=== PATIENT | male | born 1940 | race Caucasian/White ===

== ENCOUNTER → 2020-06-27 | Outpatient (CLI) | payer OTHER ==
[~2020-06-27] MED LIST: Cleocin HCl150 MG PO; METO25ER; Peridex480 ML SS; SIMV5; TERA5 PO
[2020-06-27 14:43] LABS: BASOPHILS ABSOLUTE AUTO 0.03 K/mm3 (0.00-0.23); BASOPHILS PERCENT AUTO 0 % (0-2); EOSINOPHILS ABSOLUTE AUTO 0.08 K/mm3 (0.00-0.68); EOSINOPHILS PERCENT AUTO 1 % (0-6); Hematocrit 36.8 % (37.0-53.0); Hemoglobin 12.9 g/dL (13.5-17.5); IMMATURE GRAN ABSOLUTE AUTO 0.05 K/mm3 (0.00-0.10); IMMATURE GRAN PERCENT AUTO 1 % (0-1); LYMPHOCYTES ABSOLUTE AUTO 1.99 K/mm3 (0.84-5.20); LYMPHOCYTES PERCENT AUTO 19 % (21-46); MONOCYTES ABSOLUTE AUTO 1.24 K/mm3 (0.16-1.47); MONOCYTES PERCENT AUTO 12 % (4-13); Mean Corpuscular HGB 32.9 pg (26.0-34.0); Mean Corpuscular HGB Conc 35.1 g/dL (31.5-36.5); Mean Corpuscular Volume 94 fL (80-100); Mean Platelet Volume 9.4 fL (9.1-12.4); NEUTROPHILS ABSOLUTE AUTO 7.05 K/mm3 (1.96-9.15); NEUTROPHILS PERCENT AUTO 67 % (41-73); Platelet Count 236 K/mm3 (150-400); RDW Coefficient Variation 12.2 % (11.7-14.2); RDW Standard Deviation 41.8 fL (35.1-46.3); Red Blood Cell Count 3.92 M/mm3 (4.30-5.90); White Blood Cell Count 10.44 K/mm3 (4.00-11.30)
[2020-06-27 14:54] LABS: Albumin, Blood 3.5 g/dL (3.4-5.0); Albumin/Globulin Ratio 0.7 (0.8-1.8); Bilirubin, Total 0.8 mg/dL (0.1-1.0); Calcium, Blood 9.1 mg/dL (8.5-10.1); Creatinine, Blood 1.2 mg/dL (0.60-1.20); Globulin, Blood 4.9 g/dL (2.2-4.0); Total Protein, Blood 8.4 g/dL (6.4-8.2)
== END | disposition home or self-care (01) ==
LOC: LAB 14:39 → LAB SHORT 14:39
PROVIDERS: Family Medicine
DX: I10 Essential (primary) hypertension (principal); R60.9 Edema, unspecified
CPT/HCPCS: 80053; 83880; 85025

== ENCOUNTER → 2022-11-02 | Outpatient (CLI) | payer OTHER ==
[2022-11-03 13:07] LABS: Stool Occult Bld Immuno 1 Negative (NEGATIVE)
== END ==
LOC: LAB SHORT 07:45 → LAB 07:45
PROVIDERS: Family Medicine
DX: Z12.11 Encounter for screening for malignant neoplasm of colon (principal)
CPT/HCPCS: G0328

== ENCOUNTER 2023-01-11 15:03 | Emergency (ER) | payer OTHER ==
[~2023-01-11] VITALS: Ht 170.2 cm; Wt 83.0 kg
[2023-01-11] MEDS ORDERED: AMLO10 PO (17:09)
[2023-01-11] MEDS ORDERED: METOPROLOL TART25 MG PO (17:10)
[2023-01-11] MEDS ORDERED: ZOCOR20 MG PO (17:10)
[2023-01-11] MEDS ORDERED: TAMS.4ER PO (17:10)
[2023-01-11] MEDS ORDERED: ASPIRIN REGIMEN81 MG PO (17:10)
[2023-01-11] MEDS ORDERED: ALBU90OI6 INH (17:10)
[2023-01-11 18:48] VITALS: BP 173/66
[2023-01-11] MEDS ORDERED: Percocet 5-3251 EACH PO (19:28)
== END 2023-01-11 19:43 | disposition home or self-care (01) ==
LOC: ER 15:03
DX: S22.31XA Fracture of one rib, right side, initial encounter for closed fracture (principal); M25.511 Pain in right shoulder; W18.30XA Fall on same level, unspecified, initial encounter; Z79.2 Long term (current) use of antibiotics; Z79.899 Other long term (current) drug therapy; F17.200 Nicotine dependence, unspecified, uncomplicated
CPT/HCPCS: 71101; 96374; 99283-25; A9270; J1885

== ENCOUNTER 2024-04-04 18:17 | Inpatient (IN) | payer OTHER ==
[~2024-04-04] VITALS: Ht 170.2 cm; Wt 74.1 kg
[~2024-04-04 18:17] MED LIST changes: +ALBU90OI6 INH; +AMLO10 PO; +ASPIRIN REGIMEN81 MG PO; +METOPROLOL TART25 MG PO; +NS 1,000 ML IV SCH; +Percocet 5-3251 EACH PO; +TAMS.4ER PO; +ZOCOR20 MG PO
[2024-04-04 19:13] LABS: Source, Urine Clean Catch
[2024-04-04 19:20] LABS: Appearance, Urine Hazy (Clear); Bilirubin, Urine Neg (Neg); Blood, Urine 4+ (Neg); Color, Urine Yellow (P-Yellow); Glucose Qualitative, Urine Neg (Neg); Ketones, Urine 1+ (Neg); Leukocyte Esterase, Urine 3+ (Neg); Nitrite, Urine Pos (Neg); Protein, Urine 3+ (Neg); Specific Gravity, Urine 1.015 (1.003-1.022); Urobilinogen, Urine NORM (Normal)
[2024-04-04 19:21] LABS: BASOPHILS ABSOLUTE AUTO 0.04 K/mm3 (0.00-0.23); BASOPHILS PERCENT AUTO 0 % (0-2); EOSINOPHILS ABSOLUTE AUTO 0.01 K/mm3 (0.00-0.68); EOSINOPHILS PERCENT AUTO 0 % (0-6); Hematocrit 27.2 % (37.0-53.0); Hemoglobin 9.8 g/dL (13.5-17.5); IMMATURE GRAN ABSOLUTE AUTO 0.11 K/mm3 (0.00-0.10); IMMATURE GRAN PERCENT AUTO 1 % (0-1); LYMPHOCYTES ABSOLUTE AUTO 0.64 K/mm3 (0.84-5.20); LYMPHOCYTES PERCENT AUTO 3 % (21-46); MONOCYTES ABSOLUTE AUTO 1.18 K/mm3 (0.16-1.47); MONOCYTES PERCENT AUTO 6 % (4-13); Mean Corpuscular Volume 86 fL (80-100); Mean Platelet Volume 9.2 fL (9.1-12.4); NEUTROPHILS ABSOLUTE AUTO 18.18 K/mm3 (1.96-9.15); NEUTROPHILS PERCENT AUTO 90 % (41-73); Platelet Count 278 K/mm3 (150-400); RDW Standard Deviation 41.2 fL (35.1-46.3); Red Blood Cell Count 3.16 M/mm3 (4.30-5.90); White Blood Cell Count 20.16 K/mm3 (4.00-11.30)
[2024-04-04] MEDS ORDERED: Albuterol 2.5 MG/3 ML VIAL INH SCH (19:25)
[2024-04-04] MEDS ORDERED: Ipratropium Bromide INH 0.02% 0.5 mg/2.5ML Vial INH SCH (19:25)
[2024-04-04 19:29] LABS: Bacteria Many /hpf; Granular Casts 0-2 /lpf (0); Mucus Light (0-Heavy); Squamous Epithelial Cells Rare /hpf (Few); White Blood Cells, Urine 25-50 /hpf (0-5)
[2024-04-04 19:32] LABS: Base Excess Venous -5.1 mmol/L; Bicarbonate Venous 20.9 mmol/L (24.0-30.0)
[2024-04-04 19:33] LABS: PCO2 Venous 29.6 mmHg (38-42); pH Blood Venous 7.42 (7.34-7.37)
[2024-04-04 19:38] LABS: Alanine Aminotransfer (ALT/SGP 17 U/L (12-78); Albumin, Blood 2.7 g/dL (3.4-5.0); Albumin/Globulin Ratio 0.8 (0.8-1.8); Alk Phos 106 U/L (50-136); Anion Gap 12 mmol/L (3-11); Aspartate Aminotrans (AST/SGOT 47 U/L (12-37); Bilirubin, Total 0.8 mg/dL (0.1-1.0); Blood Urea Nitrogen 15 mg/dL (8-24); CO2, Blood 19 mmol/L (21-32); Calcium, Blood 7.9 mg/dL (8.5-10.1); Chloride, Blood 97 mmol/L (98-108); Creatinine, Blood 1.15 mg/dL (0.60-1.20); Ethanol (Alcohol), Blood, Med <3 mg/dL; Globulin, Blood 3.5 g/dL (2.2-4.0); Glomerular Filtration Rate 63 (60-); Glucose, Blood 102 mg/dL (70-99); Potassium, Blood 3.9 mmol/L (3.5-5.5); Sodium, Blood 124 mmol/L (136-145); Total Protein, Blood 6.2 g/dL (6.4-8.2)
[2024-04-04 19:38] LABS: U Amphetamine Screen Not Detected; U Barbituate Screen Not Detected; U Benzodiazapine Screen Not Detected; U Buprenorphine Screen Not Detected; U Cannabinoids Screen Not Detected; U Cocaine Screen Not Detected; U Methadone Screen Not Detected; U Methamphetamine Screen Not Detected; U Opiates Screen Not Detected; U Oxycodone Screen Not Detected; U Phencyclidine Screen Not Detected
[2024-04-04] MEDS ORDERED: CefTRIAXone Sodium 1,000 MG in NS 100 ML IV ONE (19:45)
[2024-04-04] MEDS ORDERED: NS 1,000 ML IV SCH (20:00)
[2024-04-04] MEDS ORDERED: Azithromycin 500 MG in NS 250 ML IV ONE (21:45)
[2024-04-04] MEDS ORDERED: LEVSOD100 PO (21:59)
[2024-04-04] MEDS ORDERED: CILO100 PO (22:00)
[2024-04-04] MEDS ORDERED: Ondansetron HCl 2 MG / ML 2ML Vial IV PRN (23:00)
[2024-04-04] MEDS ORDERED: Lactated Ringer's 1,000 ML IV SCH (23:00)
[2024-04-04] MEDS ORDERED: Ipratropium/Albuterol SulF 2.5-0.5MG/3 ML Amp INH SCH (23:00)
[2024-04-04] MEDS ORDERED: FLU VACC TS2024-25(6MOS UP)/PF 45 MCG/0.5 ML SYRINGE IM ONE (23:00)
[2024-04-04] MEDS ORDERED: LORazepam 1 MG Tab PO PRN (23:05)
[2024-04-04] MEDS ORDERED: ChlordiazePOXIDE 25 MG Cap PO PRN (23:05)
[2024-04-04] MEDS ORDERED: Acetaminophen 325 MG TABLET PO PRN (23:05)
[2024-04-04 23:11] LABS: Influenza A, PCR NEGATIVE (NEGATIVE); Influenza B, PCR NEGATIVE (NEGATIVE); Resp Syncytial Virus, PCR NEGATIVE (NEGATIVE); SARS-Cov-2 (COVID-19) PCR, MMC NEGATIVE (NEGATIVE)
[2024-04-05] MEDS ORDERED: NS 1,000 ML IV SCH (00:10)
[2024-04-05 00:30] LABS: Magnesium, Blood 1.2 mg/dL (1.6-2.4)
[2024-04-05] MEDS ORDERED: Albuterol 2.5 MG/3 ML VIAL INH PRN (03:55)
[2024-04-05 06:14] LABS: BASOPHILS ABSOLUTE AUTO 0.04 K/mm3 (0.00-0.23); BASOPHILS PERCENT AUTO 0 % (0-2); EOSINOPHILS ABSOLUTE AUTO 0.01 K/mm3 (0.00-0.68); EOSINOPHILS PERCENT AUTO 0 % (0-6); Hemoglobin 9.3 g/dL (13.5-17.5); IMMATURE GRAN ABSOLUTE AUTO 0.11 K/mm3 (0.00-0.10); IMMATURE GRAN PERCENT AUTO 1 % (0-1); LYMPHOCYTES ABSOLUTE AUTO 1.29 K/mm3 (0.84-5.20); LYMPHOCYTES PERCENT AUTO 6 % (21-46); MONOCYTES ABSOLUTE AUTO 1.35 K/mm3 (0.16-1.47); MONOCYTES PERCENT AUTO 6 % (4-13); Mean Corpuscular HGB 30.9 pg (26.0-34.0); Mean Corpuscular HGB Conc 35.8 g/dL (31.5-36.5); Mean Corpuscular Volume 86 fL (80-100); NEUTROPHILS ABSOLUTE AUTO 18.25 K/mm3 (1.96-9.15); NEUTROPHILS PERCENT AUTO 87 % (41-73); Platelet Count 265 K/mm3 (150-400); RDW Coefficient Variation 13.3 % (11.7-14.2); RDW Standard Deviation 41.9 fL (35.1-46.3); Red Blood Cell Count 3.01 M/mm3 (4.30-5.90); White Blood Cell Count 21.05 K/mm3 (4.00-11.30)
[2024-04-05 06:39] LABS: Magnesium, Blood 1.2 mg/dL (1.6-2.4); Percent Saturation 5.6 % (20.0-50.0)
[2024-04-05 06:41] LABS: Albumin, Blood 2.4 g/dL (3.4-5.0); Albumin/Globulin Ratio 0.7 (0.8-1.8); Bilirubin, Total 0.8 mg/dL (0.1-1.0); Calcium, Blood 7.6 mg/dL (8.5-10.1); Globulin, Blood 3.5 g/dL (2.2-4.0); Potassium, Blood 3.5 mmol/L (3.5-5.5); Thyroid Stimulating Hormone 2.17 uIU/mL (0.360-4.800); Total Protein, Blood 5.9 g/dL (6.4-8.2)
[2024-04-05] MEDS ORDERED: Magnesium Sulf 2 GM/Water 50ML 50 ML IV STA (07:38)
[2024-04-05] MEDS ORDERED: Levothyroxine Sodium 0.05 MG Tab PO SCH (09:00)
[2024-04-05] MEDS ORDERED: Multivitamins 1 Tab PO SCH (09:00)
[2024-04-05] MEDS ORDERED: Aspirin 81 MG TabEC PO SCH (09:00)
[2024-04-05] MEDS ORDERED: Thiamine HCl 100 MG Tab PO SCH (09:00)
[2024-04-05] MEDS ORDERED: Metoprolol Tartrate 50 MG Tab PO SCH (09:00)
[2024-04-05] MEDS ORDERED: Enoxaparin 40 MG/0.4 ML SYR SC SCH (09:00)
[2024-04-05] MEDS ORDERED: Cilostazol 50 MG Tab PO SCH (09:00)
[2024-04-05] MEDS ORDERED: AmLODIPine Besylate 5 MG Tab PO SCH (09:00)
[2024-04-05] MEDS ORDERED: Lactobacil 2-S.Thermo-Bifido 1 1 Cap PO SCH (09:00)
[2024-04-05 15:19] VITALS: BP 128/67
--- NOTE | 2024-04-05 17:59 | NUR ---
ADMISSION/SHIFT SUMMARY: PATIENT ARRIVES TO ROOM AT 1515 VIA GURNEY FROM ER FOR DX'S OF SEPSIS D/T PNEUMONIA. PATIENT TRANSFERRED TO BED c 1 ASSIST. ADMISSION, MEDRIC AND SKIN ASSESSMENT c 2 RN'S VERIFIED COMPLETED. PATIENT ORIENTATED TO ROOM AND CALL SYSTEM. PATIENT A/OX3, CONFUSED TO DATES. PATIENT HAS VISIBLE TREMORS TO BUE'S. PER PATIENT IT'S NOT NEW TO HIM, HE HAS BEEN HAVING TREMORS FOR A WHILE. CIWA ASSESSMENT SCORE OF 3. PATIENT DENIES CP/PRESSURE, SOB, N/V AND DIZZINESS. PATIENT LUNGS COARSE/CRACKLES AND WHEEZY T/O TO AUSCULTATION. PATIENT HAS CONGESTED, BARKING NON-PRODUCTIVE COUGH, RA SATTING 94-100%. PATIENT INCON/CONT OF BOWEL/BLADDER, ATTENDS IN PLACED AND USES URINAL INDEPENDENTLY IN BED. VITAL SIGNS REVIEWED. BED ALARM ON FOR SAFETY. CALL LIGHT IN REACH.
[2024-04-05 19:36] VITALS: BP 135/68
[2024-04-05] MEDS ORDERED: NS 250 ML IV PRN (20:40)
[2024-04-05] MEDS ORDERED: Azithromycin 500 MG in NS 250 ML IV SCH (21:00)
[2024-04-05] MEDS ORDERED: CefTRIAXone Sodium 1,000 MG in NS 100 ML IV SCH (21:00)
--- NOTE | 2024-04-06 04:31 | NUR ---
NOC SUMMARY- NO NEW ISSUES. PT CIWAS REMAINED 08/17. PT HAS BEEN VOIDING SOME. PT HAS NOT BEEN DRINKING MUCH PO FLUIDS. PT WAS BLADDER SCANNED AND PVR WAS ONLY 107 ML. PT HAS BEEN COUGHING WITH LITLE PRODUCTION. CALL LIGHT IN REACH AND BED ALARM ON.
[2024-04-06 05:46] VITALS: BP 126/55
[2024-04-06 06:06] LABS: BASOPHILS ABSOLUTE AUTO 0.04 K/mm3 (0.00-0.23); BASOPHILS PERCENT AUTO 0 % (0-2); EOSINOPHILS ABSOLUTE AUTO 0.09 K/mm3 (0.00-0.68); EOSINOPHILS PERCENT AUTO 1 % (0-6); Hematocrit 25.4 % (37.0-53.0); Hemoglobin 8.9 g/dL (13.5-17.5); IMMATURE GRAN ABSOLUTE AUTO 0.11 K/mm3 (0.00-0.10); IMMATURE GRAN PERCENT AUTO 1 % (0-1); LYMPHOCYTES ABSOLUTE AUTO 1.21 K/mm3 (0.84-5.20); LYMPHOCYTES PERCENT AUTO 7 % (21-46); MONOCYTES ABSOLUTE AUTO 1.02 K/mm3 (0.16-1.47); MONOCYTES PERCENT AUTO 6 % (4-13); Mean Corpuscular HGB 30.5 pg (26.0-34.0); Mean Corpuscular Volume 87 fL (80-100); Mean Platelet Volume 9.5 fL (9.1-12.4); NEUTROPHILS ABSOLUTE AUTO 15.93 K/mm3 (1.96-9.15); NEUTROPHILS PERCENT AUTO 87 % (41-73); Platelet Count 257 K/mm3 (150-400); RDW Coefficient Variation 13.8 % (11.7-14.2); RDW Standard Deviation 43.9 fL (35.1-46.3); Red Blood Cell Count 2.92 M/mm3 (4.30-5.90)
[2024-04-06 06:28] LABS: Bun/Creatinine Ratio 13.6 (12.0-20.0); Calcium, Blood 7.8 mg/dL (8.5-10.1); Creatinine, Blood 1.03 mg/dL (0.60-1.20); Magnesium, Blood 1.6 mg/dL (1.6-2.4); Potassium, Blood 3.5 mmol/L (3.5-5.5)
[2024-04-06 07:09] VITALS: BP 143/74
[2024-04-06] MEDS ORDERED: Potassium Phosphate Dibasic 15 MM in Dextrose 5% 250 ML IV STA (08:02)
[2024-04-06] MEDS ORDERED: Ipratropium/Albuterol SulF 2.5-0.5MG/3 ML Amp INH SCH (09:15)
[2024-04-06] MEDS ORDERED: GuaiFENesin 600 MG TabCR PO SCH (10:00)
[2024-04-06] MEDS ORDERED: PredniSONE 20 MG Tab PO SCH (10:00)
[2024-04-06 15:17] VITALS: BP 139/63
--- NOTE | 2024-04-06 17:44 | NUR ---
SHIFT SUMMARY PT IS A/OX4. NO ACUTE CHANGES THROUGHOUT THIS SHIFT. PT SLEEPING THROUGHOUT MUCH OF THE SHIFT. FAMILY AT BEDSIDE DURING THE DAY. PT IS ON RA STATS MAINTAINING >95%. NO S/S OF ALCOHOL WITHDRAWAL ASSESSED.
[2024-04-06 19:15] VITALS: BP 137/66
[2024-04-07 05:46] VITALS: BP 135/59
[2024-04-07 06:22] LABS: BASOPHILS PERCENT AUTO 0 % (0-2); EOSINOPHILS PERCENT AUTO 0 % (0-6); Hemoglobin 8.6 g/dL (13.5-17.5); IMMATURE GRAN ABSOLUTE AUTO 0.12 K/mm3 (0.00-0.10); IMMATURE GRAN PERCENT AUTO 1 % (0-1); LYMPHOCYTES ABSOLUTE AUTO 0.98 K/mm3 (0.84-5.20); LYMPHOCYTES PERCENT AUTO 8 % (21-46); MONOCYTES PERCENT AUTO 5 % (4-13); Mean Corpuscular HGB 31.5 pg (26.0-34.0); Mean Corpuscular HGB Conc 35.8 g/dL (31.5-36.5); Mean Corpuscular Volume 88 fL (80-100); Mean Platelet Volume 9.5 fL (9.1-12.4); NEUTROPHILS ABSOLUTE AUTO 10.65 K/mm3 (1.96-9.15); NEUTROPHILS PERCENT AUTO 86 % (41-73); Platelet Count 253 K/mm3 (150-400); RDW Standard Deviation 44.9 fL (35.1-46.3); Red Blood Cell Count 2.73 M/mm3 (4.30-5.90); White Blood Cell Count 12.35 K/mm3 (4.00-11.30)
[2024-04-07 06:39] LABS: Bun/Creatinine Ratio 14.8 (12.0-20.0); Creatinine, Blood 1.08 mg/dL (0.60-1.20); Potassium, Blood 3.7 mmol/L (3.5-5.5)
--- NOTE | 2024-04-07 07:04 | NUR ---
SHIFT SUMMARY PT WITH NO SIGNS OF ETOH WITHDRAWAL- SCORED 2 DUE TO CHRONIC TREMORS. PT WTH NON PRODUCTIVE MOIST/LOOSE COUGH. ENCOURAGED PT TO TRY TO COUGH OUT SPUTUM, BUT PT MAINTAINS THAT THERE IS NO SPUTUM TO COUGH OUT. PT WITH URINARY RETENTION- PT WITH URGENCY X 4 (WITHIN 45 MINUTES) AND NO URINE OUTPUT. BLADDER SCAN= 272. STRAIGHT CATH'D SECONDARY TO SEVERE FEELINGS OF NEEDING TO VOID WITH 450ML CLEAR YELLOW URINE DRAINED. PT DENIES THE NEED TO VOID CURRENTLY. CALL LIGHT WITHIN REACH, BED ALARM ON, SIDE RAILS UP X2.
[2024-04-07 07:17] VITALS: BP 135/57
[2024-04-07 15:10] VITALS: BP 129/56
--- NOTE | 2024-04-07 17:24 | NUR ---
SHIFT SUMMARY PT IS A/OX3-4, CONFUSION AT TIMES. NO SIGNS OF ALCOHOL WITHDRAWAL ASSESSED THROUGHOUT THIS SHIFT. CIWA OF 2 DUE TO CHRONIC TREMORS. NO ACUTE CHANGES THROUGHOUT THIS SHIFT. PT SLEPT THROUGHOUT MOST OF THE DAY. PT REMAINS ON RA, SATS MAINTAINING >95%. PT CONTINUES TO HAVE A BARKING, NONPRODUCTIVE COUGH. FAMILY AT BEDSIDE THIS MORNING. PT WILL ATTEMPT TO AMBULATE TO THE RESTROOM BY HIMSELF WITHOUT CALLING FOR ASSISTANCE. PT IS A 1 PERSON SBA DUE TO WEAKNESS. BED ALARM IS ON WITH THE CALL LIGHT IN REACH.
[2024-04-07 20:16] VITALS: BP 138/55
[2024-04-08 02:57] VITALS: BP 133/57
[2024-04-08 05:39] LABS: BASOPHILS PERCENT AUTO 0 % (0-2); EOSINOPHILS PERCENT AUTO 0 % (0-6); Hematocrit 24.4 % (37.0-53.0); Hemoglobin 8.6 g/dL (13.5-17.5); IMMATURE GRAN ABSOLUTE AUTO 0.11 K/mm3 (0.00-0.10); IMMATURE GRAN PERCENT AUTO 1 % (0-1); LYMPHOCYTES ABSOLUTE AUTO 1.36 K/mm3 (0.84-5.20); LYMPHOCYTES PERCENT AUTO 12 % (21-46); MONOCYTES ABSOLUTE AUTO 0.79 K/mm3 (0.16-1.47); MONOCYTES PERCENT AUTO 7 % (4-13); Mean Corpuscular HGB 30.9 pg (26.0-34.0); Mean Corpuscular HGB Conc 35.2 g/dL (31.5-36.5); Mean Corpuscular Volume 88 fL (80-100); Mean Platelet Volume 9.4 fL (9.1-12.4); NEUTROPHILS ABSOLUTE AUTO 8.89 K/mm3 (1.96-9.15); NEUTROPHILS PERCENT AUTO 80 % (41-73); Platelet Count 286 K/mm3 (150-400); RDW Standard Deviation 45.3 fL (35.1-46.3); Red Blood Cell Count 2.78 M/mm3 (4.30-5.90); White Blood Cell Count 11.15 K/mm3 (4.00-11.30)
--- NOTE | 2024-04-08 05:56 | NUR ---
SHIFT SUMMARY PT CONTINUES TO HAVE HACKING/ BARKING, LOOSE-SOUNDING COUGH, MOSTLY NONPRODUCTIVE. ENCOURAGED USE OF FLUTTER DEVICE. PT REMAINS ON ROOM AIR. SLEPT SHORT PERIODS ONLY THROUGH THE NIGHT. AWAKE MOST OF THE NIGHT, LYING QUIETLY IN BED. IV ANTIBIOTICS CONTINUE. PT DENIES COMPLAINTS. NO SIGNS OF ETOH WITHDRAWAL EXCEPT FOR CHRONIC TREMORS. CALL LIGHT WITHIN REACH, BED ALARM ON, SIDE RAILS UP X2
[2024-04-08 06:02] LABS: Bun/Creatinine Ratio 21.4 (12.0-20.0); Calcium, Blood 8.7 mg/dL (8.5-10.1); Creatinine, Blood 1.12 mg/dL (0.60-1.20); Potassium, Blood 3.8 mmol/L (3.5-5.5)
[2024-04-08 07:26] VITALS: BP 125/56
[2024-04-08 15:28] VITALS: BP 128/58
[2024-04-08] MEDS ORDERED: ATOR40TA PO (18:19)
[2024-04-08] MEDS ORDERED: TAMS.4ER PO (18:20)
[2024-04-08 19:40] VITALS: BP 141/56
--- NOTE | 2024-04-08 19:58 | NUR ---
PATIENT IS ALERT AND ORIENTED WITH SOME FORGETFULNESS. COARSE LS, NO SPUTUM PRODUCTION. PATIENT IS USING THE FLUTTER VALVE AND GETTING BREATHING TREATMENTS. BM TODAY. VOIDING IN THE BATHROOM. SBA TO THE BATHROOM. THE PATIENT'S SISTER VISITED TODAY. REPORT GIVEN TO THE ONCOMING RN
[2024-04-09] VITALS (76 sets, daily range): BP systolic 73–157; BP diastolic 54–109
--- NOTE | 2024-04-09 00:55 | NUR ---
DR. HAQUE CONTACTED D/T PATIENTS ELEVATED B/P AND HEART RATE. PATIENT APPEARED ANXIOUS AND 10 MINUTES PRIOR TO CALLING REVIEWED PATIENTS CHART AND ORDERED FOR A ONE TIME DOSE OF ATIVAN.
[2024-04-09] MEDS ORDERED: LORazepam 1 MG Tab PO ONE (01:00)
[2024-04-09] MEDS ORDERED: NS 1,000 ML IV ONE (01:40)
[2024-04-09] MEDS ORDERED: propofoL 100 ML IV PRN (02:05)
--- NOTE | 2024-04-09 02:08 | NUR ---
APPROXIMATELY AT 0115 THIS RN CONTACTED TO COME UP AND CHECK PATIENT D/T RESPIRATORY DISTRESS.
[2024-04-09] MEDS ORDERED: Furosemide 10 MG/ML 4ML Vial IV ONE ×2 (02:10→13:55)
[2024-04-09 02:11] LABS: BASOPHILS ABSOLUTE AUTO 0.04 K/mm3 (0.00-0.23); BASOPHILS PERCENT AUTO 0 % (0-2); EOSINOPHILS PERCENT AUTO 0 % (0-6); Hematocrit 29.4 % (37.0-53.0); IMMATURE GRAN ABSOLUTE AUTO 0.24 K/mm3 (0.00-0.10); IMMATURE GRAN PERCENT AUTO 2 % (0-1); LYMPHOCYTES ABSOLUTE AUTO 1.88 K/mm3 (0.84-5.20); LYMPHOCYTES PERCENT AUTO 13 % (21-46); MONOCYTES ABSOLUTE AUTO 1.36 K/mm3 (0.16-1.47); MONOCYTES PERCENT AUTO 9 % (4-13); Mean Corpuscular HGB 31.3 pg (26.0-34.0); Mean Corpuscular Volume 92 fL (80-100); Mean Platelet Volume 9.8 fL (9.1-12.4); NEUTROPHILS ABSOLUTE AUTO 10.97 K/mm3 (1.96-9.15); NEUTROPHILS PERCENT AUTO 76 % (41-73); Platelet Count 358 K/mm3 (150-400); RDW Coefficient Variation 14.3 % (11.7-14.2); RDW Standard Deviation 48.4 fL (35.1-46.3); Red Blood Cell Count 3.19 M/mm3 (4.30-5.90); White Blood Cell Count 14.49 K/mm3 (4.00-11.30)
--- NOTE | 2024-04-09 02:14 | NUR ---
ENGINE CLEANER WAS CALLED ON PATIENT D/T RAPID DECLINE OF CONDITION AND RESPIRATORY EFFORT. PATIENT INTUBATED IN ROOM AND TRANSFERED TO ICU7 BEFORE BETWEEN [phone].
[2024-04-09 02:15] LABS: Source, Urine Foley catheter
[2024-04-09 02:32] LABS: Albumin, Blood 2.9 g/dL (3.4-5.0); Albumin/Globulin Ratio 0.7 (0.8-1.8); Bilirubin, Total 0.3 mg/dL (0.1-1.0); Bun/Creatinine Ratio 20.1 (12.0-20.0); Calcium, Blood 8.7 mg/dL (8.5-10.1); Creatinine, Blood 1.34 mg/dL (0.60-1.20); Globulin, Blood 4.3 g/dL (2.2-4.0); Potassium, Blood 4.2 mmol/L (3.5-5.5); Total Protein, Blood 7.2 g/dL (6.4-8.2)
--- NOTE | 2024-04-09 02:36 | NUR ---
PT ARRIVES TO ROOM ICU 7 S/P GARMENT STEAMER THAT TURNED TO RESPIRATORY CODE. PT INTUBATED AND SEDATED. LUNGS VERY WET WITH RALES. ORDER RECEIVED FOR LASIX WHICH HAS BEEN GIVEN. REPORT RECEIVED FROM ZACK POND. DR HAQUE ACCOMPANIES PT TO ROOM. 16 SAMOAN CLEMENT TEMP PROBE CATHETER PLACED. XRAY DONE TO CONFIRM ETT AND OGT CLEARED AND APPROVED BY DR HAQUE. WILL REVIEW CHART AND PLAN OF CARE FOR THIS PT.
[2024-04-09 02:37] LABS: PCO2 Arterial 67.2 mmHg (35-45)
[2024-04-09 02:38] LABS: PO2 Arterial 86.3 mmHg (80-100)
[2024-04-09 02:39] LABS: pH Blood Arterial 7.13 (7.35-7.45)
[2024-04-09 02:51] LABS: Bilirubin, Urine Neg (Neg); Blood, Urine 1+ (Neg); Glucose Qualitative, Urine Neg (Neg); Ketones, Urine Neg (Neg); Leukocyte Esterase, Urine Neg (Neg); Nitrite, Urine Neg (Neg); Protein, Urine 3+ (Neg); Specific Gravity, Urine 1.015 (1.003-1.022); Urobilinogen, Urine NORM (Normal)
[2024-04-09 03:07] LABS: Appearance, Urine Clear (Clear); Color, Urine Yellow (P-Yellow)
[2024-04-09 03:08] LABS: Bacteria Few /hpf; Granular Casts 0-2 /lpf (0); Red Blood Cells, Urine 0-2 /hpf (0-2); Squamous Epithelial Cells Few /hpf (Few); White Blood Cells, Urine 0-2 /hpf (0-5)
[2024-04-09 03:22] LABS: Magnesium, Blood 1.5 mg/dL (1.6-2.4)
[2024-04-09] MEDS ORDERED: Hydrogen Peroxide 1.5 % Solution MT SCH (04:00)
[2024-04-09] MEDS ORDERED: FentaNYL Citrate 50 MCG/ML 2 ML Injection IV PRN (04:20)
--- NOTE | 2024-04-09 05:37 | NUR ---
PT HAS REQUIRED INCREEASE IN PROPOFOL TO 40 MCG'S/KG/MIN. PT WAS ALSO MEDICATED WITH 25 MCG'S FENTANYL ADJUNCT FOR VENT TOLERANCE. PT HAS THIN RED COLORED SECRETIONS RETURNED FROM ETT. PT HAS BEEN TITRATED DOWN ON HIS FIO2 TO 60 PERCENT. MAINTAINS SATURATIONS > 90 PERCENT WITH THIS. SPOKE WITH RESPIRATORY CARE CONCERNING POTENTIAL TO DECREASE PEEP. HAS HAD DECREASED TEMPERATURE READ BY TEMP PROBE CLEMENT. 95.5 LOW. ETCO2 18-20. WILL CONTINUE TO MONITOR PT, AND WILL REPORT OFF TO ONCOMING RN.
[2024-04-09] MEDS ORDERED: Cetylpyridinium Chloride 1 EA MISC MT SCH (08:00)
[2024-04-09] MEDS ORDERED: Ipratropium/Albuterol SulF 2.5-0.5MG/3 ML Amp INH SCH (08:30)
[2024-04-09] MEDS ORDERED: Etomidate 2MG / ML 10ML Vial IV ONE (09:09)
[2024-04-09] MEDS ORDERED: Rocuronium Bromide 10 MG/ML 5ML Injection IV ONE (09:09)
[2024-04-09] MEDS ORDERED: Magnesium Sulf 2 GM/Water 50ML 50 ML IV ONE (09:15)
[2024-04-09 09:44] LABS: BASOPHILS ABSOLUTE AUTO 0.04 K/mm3 (0.00-0.23); BASOPHILS PERCENT AUTO 0 % (0-2); EOSINOPHILS ABSOLUTE AUTO 0.18 K/mm3 (0.00-0.68); EOSINOPHILS PERCENT AUTO 1 % (0-6); Hematocrit 26.2 % (37.0-53.0); Hemoglobin 8.9 g/dL (13.5-17.5); IMMATURE GRAN ABSOLUTE AUTO 0.26 K/mm3 (0.00-0.10); IMMATURE GRAN PERCENT AUTO 2 % (0-1); LYMPHOCYTES ABSOLUTE AUTO 1.69 K/mm3 (0.84-5.20); LYMPHOCYTES PERCENT AUTO 12 % (21-46); MONOCYTES ABSOLUTE AUTO 1.49 K/mm3 (0.16-1.47); MONOCYTES PERCENT AUTO 11 % (4-13); Mean Corpuscular HGB 30.8 pg (26.0-34.0); Mean Corpuscular Volume 91 fL (80-100); Mean Platelet Volume 9.5 fL (9.1-12.4); NEUTROPHILS ABSOLUTE AUTO 10.49 K/mm3 (1.96-9.15); NEUTROPHILS PERCENT AUTO 74 % (41-73); Platelet Count 284 K/mm3 (150-400); RDW Coefficient Variation 14.4 % (11.7-14.2); RDW Standard Deviation 48.3 fL (35.1-46.3); Red Blood Cell Count 2.89 M/mm3 (4.30-5.90); White Blood Cell Count 14.15 K/mm3 (4.00-11.30)
[2024-04-09 10:04] LABS: Bun/Creatinine Ratio 22.1 (12.0-20.0); Calcium, Blood 8.2 mg/dL (8.5-10.1); Creatinine, Blood 1.4 mg/dL (0.60-1.20); Potassium, Blood 3.2 mmol/L (3.5-5.5)
[2024-04-09] MEDS ORDERED: Potassium Chl 20MEQ/Water100ML 100 ML IV STA (10:42)
--- NOTE | 2024-04-09 11:32 | NUR ---
OGT AFTER LOOKING AT XRAY FROM THIS AM, DR. MAS DETERMINED THAT THE OGT WAS NOT NECESSARILY IN THE STOMACH. ATTEMPTED TO ADVANCE IT, BUT IT IS COILING IN THE MOUTH. ATTEMPTED PLACEMENT WITH NEW OGT AND IT ADVANCE TO ABOUT 55CM THEN STOPS SUDDENLY. MULTIPLE ATTEMTPS TO ADVANCE IT FURTHER, BUT UNSUCCESSFUL. REPEAT XRAY DONE AND DR. MAS SAID IT APPEARED TO BE IN THE SAME SPOT BEFORE SO HE GAVE ORDERS TO PULL IT SO IT ISN'T MISTAKENLY USED. ORDERS TO LEAVE OGT OUT FOR TODAY.
--- NOTE | 2024-04-09 12:36 | NUR ---
REASSESSMENT PT REMAINS INTUBATED AND SEDATED. WITH LITTLE STIMULATION HE STARTS COUGHING AND FIGHTING THE VENT, BUT SETTLES BACK DOWN WHEN LEFT UNDISTURBED. LUNGS HAVE A FEW WHEEZES, SCANT SECRETIONS FROM ETT, BUT MODERATE ORAL SECRETIONS. SR/ST, MAP ABOVE 65. CL YELLOW URINE IN CLEMENT. PT'S CHELY AND SISTER WERE IN THIS MORNING AND UPDATED BY NURSING STAFF AND DR. MAS. DR. MCCRAY AT BEDSIDE CURERNTLY FOR CARDIOLOGY CONSULT.
--- NOTE | 2024-04-09 13:04 | NUR ---
Met briefly with pt's family at the bedside. Pt's daughter and sister were present, and sister was tearful throughout the discussion. Pt's daughter states the patient is a Full Code currently, as was his choice prior to being placed on ventilator. Daughter states they are thinking about changing his code status to DNR, but awaiting Echo results. Palliative Care will remain available for supportive visits and goals of care meetings as needed.
[2024-04-09 14:44] LABS: Anti-Xa UFH, PHA Monitoring 0.36 IU/mL; International Normalized Ratio 0.95; Prothrombin Time Results 10.2 Sec (9.7-11.5)
[2024-04-09] MEDS ORDERED: Dose Adjust by Pharmacy XX STA ×2 (14:49→21:48)
[2024-04-09] MEDS ORDERED: Heparin Sodium,Porcine/0.5 NS 500 ML IV SCH (14:50)
--- NOTE | 2024-04-09 17:09 | NUR ---
SHIFT SUMMARY PT REMAINS INTUBATED AND SEDATED. HIS LUNGS HAVE CLEARED. FIO2 AND PEEP TITRATED DOWN THROUGHOUT THE SHIFT. PEEP STAYIGN AT [address] MAS. SR, MAP ABOVE 60. DR. LONDONO ORDERED LASIX AND PT HAS HAD GOOD OUTPUT FOLLOWING IT. LIGHT YELLOW IN COLOR. ABD SOFT, MILDLY DISTENDED. DR. LONDONO SPOKE WITH PT'S SISTER AND CHELY AND PLAN IS FOR STORAGE WHARFAGE CLERK TOMORROW. HEPARIN GTT STARTED AND TITRATING PER PHARMACY.
[2024-04-09 17:11] LABS: Bun/Creatinine Ratio 21.4 (12.0-20.0); Calcium, Blood 8.1 mg/dL (8.5-10.1); Creatinine, Blood 1.45 mg/dL (0.60-1.20); Magnesium, Blood 2.1 mg/dL (1.6-2.4); Phosphorus, Blood 3.6 mg/dL (2.5-4.9); Potassium, Blood 3.7 mmol/L (3.5-5.5)
--- NOTE | 2024-04-09 20:00 | NUR ---
ASSUMED CARE OF PT AT 1900. REPORT RECEIVED AT BEDSIDE. PT PRESENTS IN BED, INTUBATED. AC 18, Tv 450, PEEP 8.0, FIO2 35 PERCENT. PT BECOMES AGITATED WITH ANY CONTACT. BEGINS TO COUGH AGGRESSIVELY. HAVE INCREASED PROPOFOL TO 45 MCG'S/KG/MIN TO IMPRROVE VENT TOLERANCE. WILL REVIEW CHART AND PLAN OF CARE FOR THIS PT.
[2024-04-10] VITALS (36 sets, daily range): BP systolic 104–175; BP diastolic 49–95
--- NOTE | 2024-04-10 | NUR ---
PT EASILY BEGINS TO COUGH AND FIGHT AGAINST VENT WITH ANY STIMULI. HAVE MEDICATED PT ONCE WITH 50 MCG'S FENTANYL ADJUNT TO PROPOFOL. HEPARIN DRIP CONTINUES PER PHARMACY. NO S/S BLEEDING TO NOTE. WILL CONTINUE TO MONITOR.
[2024-04-10 03:25] LABS: BASOPHILS ABSOLUTE AUTO 0.01 K/mm3 (0.00-0.23); BASOPHILS PERCENT AUTO 0 % (0-2); EOSINOPHILS PERCENT AUTO 0 % (0-6); Hematocrit 26.2 % (37.0-53.0); IMMATURE GRAN PERCENT AUTO 2 % (0-1); LYMPHOCYTES ABSOLUTE AUTO 1.57 K/mm3 (0.84-5.20); LYMPHOCYTES PERCENT AUTO 15 % (21-46); MONOCYTES ABSOLUTE AUTO 0.82 K/mm3 (0.16-1.47); MONOCYTES PERCENT AUTO 8 % (4-13); Mean Corpuscular HGB 30.6 pg (26.0-34.0); Mean Corpuscular HGB Conc 34.4 g/dL (31.5-36.5); Mean Corpuscular Volume 89 fL (80-100); Mean Platelet Volume 9.6 fL (9.1-12.4); NEUTROPHILS ABSOLUTE AUTO 7.66 K/mm3 (1.96-9.15); NEUTROPHILS PERCENT AUTO 75 % (41-73); Platelet Count 282 K/mm3 (150-400); RDW Coefficient Variation 14.2 % (11.7-14.2); RDW Standard Deviation 46.4 fL (35.1-46.3); Red Blood Cell Count 2.94 M/mm3 (4.30-5.90); White Blood Cell Count 10.26 K/mm3 (4.00-11.30)
[2024-04-10 03:42] LABS: Bun/Creatinine Ratio 22.6 (12.0-20.0); Calcium, Blood 8.1 mg/dL (8.5-10.1); Creatinine, Blood 1.33 mg/dL (0.60-1.20); Magnesium, Blood 1.9 mg/dL (1.6-2.4); Phosphorus, Blood 4.4 mg/dL (2.5-4.9); Potassium, Blood 3.7 mmol/L (3.5-5.5)
[2024-04-10] MEDS ORDERED: Dose Adjust by Pharmacy XX STA ×2 (04:10→11:43)
--- NOTE | 2024-04-10 04:57 | NUR ---
PT HAS FULL BEDBATH DONE THIS MORNING. TOLERATES THIS FAIR. DOES REACH TOWARDS ETT WHEN WRIST RESTRAINTS REMOVED FOR TURNS. PT DOES NOT REDIRECT. HAVE DONE SEDATION VACATION THIS MORNING. PT DOES NOT TOLERATE THIS WELL AND DOES HAVE COUGH. WILL CONTINUE TO MONITOR PT, AND WILL REPORT OFF TO ONCOMING RN.
--- NOTE | 2024-04-10 09:25 | NUR ---
ASSUMED CARE PT IS INTUBATED AND SEDATED. RESPONDING TO VERBAL STIMULI. VENT SETTINGS AC/VC 18/450/8/30%, TOLERATING VENT WHILE SEDATED. SATS IN THE 90'S. L/S COARSE AND CRACKLES T/O. ON CONTINUOUS CARDIAC MONITORING, BP STABLE, HR IN THE 80-90'S, MAPS > 65. NO OGT/NGT IN PLACE, SEE PREVIOUS NOTES FOR DETAILS. CLEMENT PATENT AND DRAINING TO GRAVITY. 3 PIVS PATENT AND INFUSING HEPARIN AT 12U/KG/HR, PROPOFOL AT 45MCH/KG/MIN AND TKO. PT TOLERATED SAT FOR 10MIN, WAS ABLE TO FOLLOW COMMANDS, WIGGLE TOES, SQUEEZE FINGERS AND OPEN EYES. PT WAS ABLE TO REPORT NO PAIN. PT BEGAN COUGHING AND NOT TOLERATING THE VENT WELL, I RESEDATED AT HIS INITIAL DOSE OF 45MCG/KG/MIN. PT BECAME RELAXED AND AROUSABLE W/ VERBAL STIMULI AND TOLERATED VENT BETTER. PLAN FOR CUBE CUTTER LATER THIS AM.
[2024-04-10] MEDS ORDERED: MethylPREDNISolone Sod Succ 40 MG VIAL IV SCH (11:00)
[2024-04-10] MEDS ORDERED: Thiamine HCl 100 MG in NS 50 ML IV SCH (12:00)
[2024-04-10] MEDS ORDERED: Verapamil HCL 2.5 MG/ML 2ML Injection ONE (12:56)
[2024-04-10] MEDS ORDERED: NS 1,000 ML IV ONE ×2 (12:56→13:34)
[2024-04-10] MEDS ORDERED: Nitroglycerin 2 MG/20 ML BTL ONE (12:57)
[2024-04-10] MEDS ORDERED: Heparin Sodium 1000 Units/ML 10ML MDV ONE ×2 (12:57→14:33)
[2024-04-10] MEDS ORDERED: NS 250 ML IV ONE (12:57)
[2024-04-10] MEDS ORDERED: FentaNYL Citrate 50 MCG/ML 2 ML Injection ONE (13:24)
[2024-04-10] MEDS ORDERED: Aspirin 300 MG Supp PR SCH (16:00)
--- NOTE | 2024-04-10 16:07 | NUR ---
Spiritual Care Visit. Pt. is intibated, but is in the process of being weaned, and acknowleges an awareness of people who are present. After introducing myself to the family and Pt. Pt. displayed distress in the form of a painful cough. Not wanting to raise the Pts. frustation I kept the visit short. Prayed with Pt. The family at bedside verbalize gratitude for the spiritual care visit. Will remain available to Pt. and family.
[2024-04-10] MEDS ORDERED: MethylPREDNISolone Sod Succ 40 MG VIAL IV STA (16:08)
[2024-04-10] MEDS ORDERED: EPINEPHrine HCL 11.25 MG/0.5 ML VIAL INH SCH (17:00)
--- NOTE | 2024-04-10 17:43 | NUR ---
SHIFT SUMMARY PT WAS EXTUBATED AT 1600 TO ROOM AIR. SATS IN THE 90'S. L/S COARSE AND WHEEZY T/O. SCHEDULED BREATHING TX ORDERED. TOLERATED EXTUBATION WELL. ABLE TO SPEAK, SWALLOW SPOONFULS OF WATER AND APPLESAUCE. WEAK PRODUCTIVE COUGH, SUCTIONS INDEPENDENTLY. HE WENT TO MAID SUPERVISOR TODAY FOR A PCI, ARMBOARD IN PLACE, TR BAND INFLATED TO 10ML ON ARRIVAL BACK TO ROOM. NO LEAKING OR OOZING NOTED. HEPARIN ON SB AND PLANNED TO RESUME 3HRS AFTER TR BAND REMOVAL. HR IN THE 100-110'S, DENIES CP AT THIS TIME. ON CONTINUOUS HUNTING SALES ASSOCIATE. HE IS ALERT AND ORIENTED X4 AND RESPONDING APPROPRIATLY. CLEMENT IN PLACE AND DRAINING TO GRAVITY. CALL LIGHT IN REACH.
[2024-04-10] MEDS ORDERED: Aspirin 81 MG Chew PO ONE (18:30)
[2024-04-10] MEDS ORDERED: Ticagrelor 90 MG TABLET PO ONE (18:30)
[2024-04-10] MEDS ORDERED: NS 700 ML IV SCH (18:45)
[2024-04-10] MEDS ORDERED: EPINEPHrine HCL 11.25 MG/0.5 ML VIAL INH PRN (19:05)
--- NOTE | 2024-04-10 23:03 | NUR ---
TR BAND TR BAND REMOVED AT THIS TIME. SITE CLEANED AND OPSITE PLACED. SMALL AMOUNT OF BRUISING NOTED. NO BLEEDING AT THIS TIME.
[2024-04-11] VITALS (49 sets, daily range): BP systolic 122–178; BP diastolic 60–143
[2024-04-11 03:44] LABS: BASOPHILS PERCENT AUTO 0 % (0-2); EOSINOPHILS PERCENT AUTO 0 % (0-6); Hematocrit 25.5 % (37.0-53.0); Hemoglobin 8.9 g/dL (13.5-17.5); IMMATURE GRAN ABSOLUTE AUTO 0.32 K/mm3 (0.00-0.10); IMMATURE GRAN PERCENT AUTO 4 % (0-1); LYMPHOCYTES ABSOLUTE AUTO 1.19 K/mm3 (0.84-5.20); LYMPHOCYTES PERCENT AUTO 14 % (21-46); MONOCYTES PERCENT AUTO 8 % (4-13); Mean Corpuscular HGB 30.7 pg (26.0-34.0); Mean Corpuscular HGB Conc 34.9 g/dL (31.5-36.5); Mean Corpuscular Volume 88 fL (80-100); Mean Platelet Volume 9.5 fL (9.1-12.4); NEUTROPHILS ABSOLUTE AUTO 6.27 K/mm3 (1.96-9.15); NEUTROPHILS PERCENT AUTO 74 % (41-73); Platelet Count 333 K/mm3 (150-400); RDW Coefficient Variation 14.2 % (11.7-14.2); RDW Standard Deviation 45.5 fL (35.1-46.3); White Blood Cell Count 8.48 K/mm3 (4.00-11.30)
[2024-04-11 03:57] LABS: Bun/Creatinine Ratio 24.3 (12.0-20.0); Calcium, Blood 8.2 mg/dL (8.5-10.1); Creatinine, Blood 1.11 mg/dL (0.60-1.20); Phosphorus, Blood 3.6 mg/dL (2.5-4.9); Potassium, Blood 3.7 mmol/L (3.5-5.5)
[2024-04-11] MEDS ORDERED: Aspirin 81 MG Chew PO SCH (06:00)
[2024-04-11] MEDS ORDERED: Ticagrelor 90 MG TABLET PO SCH (06:00)
--- NOTE | 2024-04-11 06:13 | NUR ---
SHIFT SUMMARY NO ACUTE CHANGES DURING NOC. RESTING QUIETLY WHEN UNDISTURBED. ROUSES EASILY TO VERBAL STIMULI. ORIENTED TO SELF, PLACE, EVENTS, AND YEAR. THOUGHT IT WAS MARCH AND IS UNSURE OF DATE/TIME, BUT REORIENTS EASILY. COOPERATIVE WITH CARE. REPOSITIONS SELF IN BED. VSS T/O NOC. HR NOW 80s. AFEBRILE. O2 SATS DROPPED DURING NOC TO 88%- PLACED ON 2L NC. LUNGS WITH WHEEZING NOTED- INCREASED WITH ACTIVITY. CRACKLES IN BASES. FREQUENT HARSH COUGH- OCCASIONALLY PRODUCTIVE OF SPUTUM. PT HAS BEEN NPO [facility]INCE [facility] FOR POSSIBLE RETURN TO CARDIAC SEPTIC TANK SETTER. CLEMENT PATENT AND DRAINING TO GRAVITY. HEPARIN RESTARTED AT 0200 AT 13UNITS//KG/HR PER PHARMACY. RIGHT RADIAL SITE WITH DRSG C/D/I- SMALL AMOUNT OF BRUISING NOTED. PLAN OF CARE ONGOING. WILL REPORT TO ONCOMING SHIFT WHEN AVAILABLE.
[2024-04-11] MEDS ORDERED: Verapamil HCL 2.5 MG/ML 2ML Injection ONE (08:21)
[2024-04-11] MEDS ORDERED: Nitroglycerin 2 MG/20 ML BTL ONE (08:22)
[2024-04-11] MEDS ORDERED: Heparin Sodium 1000 Units/ML 10ML MDV ONE ×2 (08:22→09:02)
[2024-04-11] MEDS ORDERED: NS 1,000 ML IV ONE (08:22)
[2024-04-11] MEDS ORDERED: NS 250 ML IV ONE (08:22)
[2024-04-11] MEDS ORDERED: FentaNYL Citrate 50 MCG/ML 2 ML Injection ONE (08:58)
[2024-04-11] MEDS ORDERED: NS 500 ML IV ONE (08:58)
[2024-04-11] MEDS ORDERED: Midazolam HCl 1MG / ML 2ML Vial ONE (08:58)
[2024-04-11] MEDS ORDERED: Levothyroxine Sodium 100 MCG Vial IV SCH (09:00)
--- NOTE | 2024-04-11 09:21 | NUR ---
AM NOTE... ASSUMED CARE OF PT AT 0700, PT IS A&Ox4. HE WAS ON 2L NC WHICH WAS INCREASED TO 3L NC TO KEEP O2 SATS>90%. L/S EXP WHEEZES T/O COARSE CRACKLES HEARD T/O. PT'S RR IS IN THE 20'S AND IS LABORED WITH ACTIVITY. PT IS IN SR IN THE 80'S-90'S WITH PACs AND PVCs. PT'S BP IS HYPERTENSIVE WITH SBPs IN THE 150'S-160'S. PT HAS 1+ EDEMA TO HIS BLE. RIGHT RADIAL SITE IS STABLE NO SWELLING, BLEEDING OR HEMATOMA NOTED. PT'S CLEMENT IS PATENT AND DRAINING TO GRAVITY. PT LEFT FOR THE BASEBALL SEWER HAND AT 0850. THE PT'S HEPARIN DRIP HAD INFILTRATED AT AN UNKNOWN TIME, PTT WAS WNL PHARMACY AWARE. WILL CONTINUE TO MONITOR.
[2024-04-11] MEDS ORDERED: Enoxaparin 40 MG/0.4 ML SYR SC SCH (13:00)
[2024-04-11] MEDS ORDERED: PredniSONE 20 MG Tab PO ONE (13:00)
--- NOTE | 2024-04-11 13:55 | NUR ---
TR BAND SITE BLEED... AT AROUND 1230 THIS RN WAS IN THE ROOM TO GIVE MEDICATIONS, THE PT STARTED TO HAVE A COUGHING FIT THAT WAS VERY VIOLENT. THIS RN THEN NOTED THERE WAS FRESH BLOOD ON THE PILLOW CASE WHERE HIS RIGHT ARM WAS AT THE TIME. THE ARM BOARD WAS IN PLACE. WHEN THIS RN REMOVED THE ARM BOARD A MODERATE AMOUNT OF BLOOD WAS NOTED AROUND THE TR BAND AND ON THE PILLOW CASE. NO AIR HAD BEEN REMOVED FROM THE BAND SINCE ARRIVAL FROM THE GAUGER DELIVERY. THIS RN ADDED 3MLS OF AIR INTO THE BAND. DUE TO THE AMOUNT OF BLOOD ON AND AROUND THE BAND IT WAS DIFFICULT TO SEE IF THE BLEEDING HAD STOPPED. THIS RN CALLED THE MAST MAKER INTO THE ROOM, MANUAL PRESSURE WAS HELD AND A NEW TR BAND WAS PLACED WITH 15MLS OF AIR IN THE BAND. PULSES WERE STILL FELT DISTAL AND PROX TO THE TR BAND, THE PT DENIED ANY PAIN, NUMBESS/TINGLING TO HIS RIGHT HAND, SPO2 MONITOR WAS PLACED ON THE RIGHT INDEX FINGER. WILL CONTINUE TO MONITOR.
[2024-04-11] MEDS ORDERED: Pantoprazole Sodium 40 MG Injection IV SCH (16:00)
[2024-04-11 17:22] LABS: Hematocrit 25.6 % (37.0-53.0); Hemoglobin 8.9 g/dL (13.5-17.5)
--- NOTE | 2024-04-11 17:57 | NUR ---
SHIFT SUMMARY.... AT APROX 1500 THIS RN WAS IN THE ROOM TO ASSESS THE PT'S TR BAND SITE AND NOTICED A PURPLE GOLF BALL SIZED HEMATOMA AT THE PT'S RIGHT AC, PT DENIED PAIN AT THE SITE UNTIL PRESSURE WAS HELD. MANUAL PRESSURE WAS HELD BY THIS RN FOR APROX 5 MINS, DURING THIS THE PT DID C/O OF 5/10 PAIN. AFTER PRESSURE WAS HELD FOR 5 MINS THE AREA WAS SOFT. THERE WAS NO CHANGE TO THE RIGHT RADIAL SITE. THE TR BAND WAS DEFLATED AT 1630. PT FREQUENTLY FORGETS NOT TO USE HIS RIGHT ARM/HAND. PT'S BP HAS BEEN 150'S-160'S, HR HAS BEEN STABLE. THE PT HAD 2 SOFT BROWN BMs WITH BLAYNE RED BLOOD NOTED. THIS RN ALSO NOTED BLOOD IN THE PT'S CLEMENT LINE. THE PROVIDER WAS NOTIFIED AND ORDERS FOR AN H&H CHECK WERE GIVEN. THE PT'S URINE CLEARED BACK TO YELLOW APROX 2HRS AFTER THE BLOOD WAS NOTED. THE PT'S H&H CAME BACK STABLE. THE PT'S CLEMENT WAS D/C'd WNL AT APROX 1600. THE PT HAS DENIED CHEST PAIN ALL SHIFT. PT CONTINUES TO BE ON 3L NC WITH O2 SATS>90%, L/S CONTINUE TO BE COARSE WITH EXP WHEEZES T/O. CALL LIGHT IN REACH WILL CONTINUE TO MONITOR UNTIL REPORT IS GIVEN TO ONCOMING RN.
[2024-04-11] MEDS ORDERED: Famotidine 20 MG Tab PO SCH (18:00)
--- NOTE | 2024-04-11 19:00 | NUR ---
ASSUMED CARE ASSUMED CARE OF PATIENT. VISITING WITH FAMILY AT THIS TIME. VSS. RIGHT FOREARM WITH LARGE HEMATOMA FROM IV INFILTRATE. RIGHT RADIAL SITE WITH BRUISING NOTED, BUT NO BLEEDING/HEMATOMA. RESPIRATIONS EVEN AND UNLABORED AT REST, BUT PT IS SOB WITH EXERTION. AUDIBLE WHEEZING NOTED WITH EXERTION. SATS STABLE WITH 3L NC. DENIES C/O PAIN OR DISCOMFORT AT THIS TIME. SEE SHIFT ASSESSMENT FOR FULL ASSESSMENT.
[2024-04-12] VITALS (23 sets, daily range): BP systolic 99–177; BP diastolic 63–107
[2024-04-12 03:34] LABS: BASOPHILS ABSOLUTE AUTO 0.02 K/mm3 (0.00-0.23); BASOPHILS PERCENT AUTO 0 % (0-2); EOSINOPHILS PERCENT AUTO 0 % (0-6); Hematocrit 24.7 % (37.0-53.0); Hemoglobin 8.6 g/dL (13.5-17.5); IMMATURE GRAN ABSOLUTE AUTO 0.26 K/mm3 (0.00-0.10); IMMATURE GRAN PERCENT AUTO 2 % (0-1); LYMPHOCYTES ABSOLUTE AUTO 1.29 K/mm3 (0.84-5.20); LYMPHOCYTES PERCENT AUTO 12 % (21-46); MONOCYTES ABSOLUTE AUTO 1.07 K/mm3 (0.16-1.47); MONOCYTES PERCENT AUTO 10 % (4-13); Mean Corpuscular HGB 31.3 pg (26.0-34.0); Mean Corpuscular HGB Conc 34.8 g/dL (31.5-36.5); Mean Corpuscular Volume 90 fL (80-100); Mean Platelet Volume 9.3 fL (9.1-12.4); NEUTROPHILS ABSOLUTE AUTO 8.28 K/mm3 (1.96-9.15); NEUTROPHILS PERCENT AUTO 76 % (41-73); Platelet Count 347 K/mm3 (150-400); RDW Coefficient Variation 14.6 % (11.7-14.2); RDW Standard Deviation 46.7 fL (35.1-46.3); Red Blood Cell Count 2.75 M/mm3 (4.30-5.90); White Blood Cell Count 10.92 K/mm3 (4.00-11.30)
[2024-04-12 03:50] LABS: Calcium, Blood 8.5 mg/dL (8.5-10.1); Creatinine, Blood 1.18 mg/dL (0.60-1.20)
--- NOTE | 2024-04-12 05:55 | NUR ---
SHIFT SUMMARY NO ACUTE CHANGES DURING NOC. SLEPT MINIMALLY. ORIENTED TO SELF, PLACE, EVENT. INCREASING CONFUSION NOTED THIS AM. REPOSITIONS SELF IN BED FREQUENTLY. FREQUENT URINATION WITH URINAL- SMALL AMOUNTS OF YELLOW URINE. INCONTINENT OF URINE X 1. SBP 160s-170s AT TIMES. HR 80s-90s. AFEBRILE. CONTINUES WITH WHEEZING- INCREASED WITH EXERTION. FREQUENT HARSH NONPRODUCTIVE COUGH. SATS STABLE WITH 3L NC. RESPIRATIONS EVEN AND UNLABORED AT REST. DENIES C/O PAIN OR OTHER DISCOMFORT. RIGHT RADIAL SITE WITH BRUISING NOTED BUT NO BLEEDING OR HEMATOMA. ARM BOARD IS IN PLACE. HEMATOMA NOTED TO RIGHT FOREARM- UNCHANGED T/O SHIFT. PLAN OF CARE IS ONGOING. WILL REPORT TO ONCOMING RN WHEN AVAILABLE.
[2024-04-12] MEDS ORDERED: Levothyroxine Sodium 0.05 MG Tab PO SCH (06:00)
[2024-04-12] MEDS ORDERED: PredniSONE 20 MG Tab PO SCH (09:00)
[2024-04-12] MEDS ORDERED: Atorvastatin 40 MG Tab PO SCH (09:00)
[2024-04-12] MEDS ORDERED: Thiamine HCl 100 MG Tab PO SCH (09:00)
--- NOTE | 2024-04-12 10:30 | NUR ---
ASSUMED CARE PT IS LYING IN BED, AWAKE. A&OX4, RESPONDING APPROPRIATLY. ON 3L NC, SATS IN THE 90'S. L/S WHEEZY T/O. RT AT BEDSIDE W/ BREATHING TX. ON CONTINUOUS CARDIAC MONITORING, HR IN THE 70'S. DENIES CP/PRESSURE. SBP IN THE 150-160'S. VOIDING WITH NURSE ASSIST IN URINAL AT BEDSIDE. TOLERATING PO INTAKE W/O N/V. ARMBOARD IN PLACE FROM PCI YESTERDAY. LARGE HEMATOMA ON R FOREARM FROM IV INFILTRATION, DENIES PAIN. DRESSING CHANGED. CALL LIGHT IN REACH.
--- NOTE | 2024-04-12 18:26 | NUR ---
SHIFT SUMMARY PT IS A&OX4, VSS, ON ROOM AIR WITH SATS IN THE 90'S. L/S WHEEZY T/O, SCHEDULED NEB TX WITH RT ORDERED. CONTINUOUS CARDIAC MONITORING, HR IN THE 90'S. DENIES CP. VOIDING IN URINAL AT BEDSIDE W/ NURSE ASSIST. TOLERATING PO INTAKE. HAD BM USING BEDSIDE COMMODE THIS SHIFT. PT HAS DADA DRESSING IN PLACE ON RLQ OF ABD R/T CONTINUOUS LEAKING OF BLOOD. PT REPORTS NO PAIN. NO ACUTE EVENTS THIS SHIFT. CALL LIGHT IN REACH.
[2024-04-13] VITALS (9 sets, daily range): BP systolic 140–176; BP diastolic 68–98
[2024-04-13 03:12] LABS: Hematocrit 27.2 % (37.0-53.0); Hemoglobin 9.5 g/dL (13.5-17.5); Mean Corpuscular HGB 31.8 pg (26.0-34.0); Mean Corpuscular HGB Conc 34.9 g/dL (31.5-36.5); Mean Corpuscular Volume 91 fL (80-100); Mean Platelet Volume 9.1 fL (9.1-12.4); Platelet Count 395 K/mm3 (150-400); RDW Coefficient Variation 14.6 % (11.7-14.2); RDW Standard Deviation 47.8 fL (35.1-46.3); Red Blood Cell Count 2.99 M/mm3 (4.30-5.90); White Blood Cell Count 14.79 K/mm3 (4.00-11.30)
[2024-04-13 03:33] LABS: Bun/Creatinine Ratio 29.3 (12.0-20.0); Calcium, Blood 8.7 mg/dL (8.5-10.1); Creatinine, Blood 1.16 mg/dL (0.60-1.20); Potassium, Blood 3.8 mmol/L (3.5-5.5)
--- NOTE | 2024-04-13 06:43 | NUR ---
SHIFT SUMMARY PATIENT PLEASANT MAN NO AUDITORY OR VISUAL HALLUCINATIONS THROUGH SHIFT. BILATERAL LUNGS BOTH WHEEZES AND COARSE, URINATING IN URINAL IN BED, DOES GET UP TO BEDSIDE COMMADE FOR BOWEL MOVEMENT. NO BM FOR THIS SHIFT. DOES USE CALL LIGHT. A&O X2 CONFUSED ON WHY HERE AND FORGETS WHERE HE IS. IV'S SALINE LOCKED RIGHT AND LEFT 20G AC'S. @330 PATIENT HAD GOTTEN UP THREE TIMES AND STARTED SATTING IN THE MID TO HIGH 90'S BUT MOSTLY STAYING IN MID 80'S. CALLED RT CAME AND PUT ON BIPAP //40%, SATTING IN THE HIGH 90'S WITH BIPAP. PATIENT DOES TAKE IT OFF AND USE URINAL AND DROPS IN SATS PRETTY QUICK. PATIENT LIKES IT ON. CALL LIGHT WITHIN REACH.
--- NOTE | 2024-04-13 08:15 | NUR ---
ASSUME CARE: BEDSIDE REPORT RECIEVED FROM ZACK JEAN. PT SLEEPING, BIPAP IN PLACE; SETTINGS 12/6 AT 40%, SPO2>90%. BIPAP REMOVED FOR AM CARE AND BREAKFAST, SPO2>90% ON RA. PT 1P ASSIST TO BSC AND CHAIR. ABLE TO SWALLOW MEDICATIONS IN APPLESAUCE. SBP 140s, MAP>65 DENIES CHEST PAIN OR PRESSURE. MONITOR SHOWS SINUS RYTHM W/PVCs. PT HAS HARSH PRODUCTIVE COUGH W/THICK SPUTUM. WILL UPDATE NEEDED.
[2024-04-13] MEDS ORDERED: Ipratropium/Albuterol SulF 2.5-0.5MG/3 ML Amp INH SCH (08:30)
[2024-04-13] MEDS ORDERED: PredniSONE 20 MG Tab PO SCH (09:00)
--- NOTE | 2024-04-13 10:15 | NUR ---
PHYSICAL THERAPY NOTING R SIDED FOOT DROP ON THEIR ASSESSMENT. DR. HOLLEY NOTIFIED.
--- NOTE | 2024-04-13 14:33 | NUR ---
PT ARRIVED TO UNIT WITH ALL BELONGINGS BY RECLINER. PT VITALS TAKEN AND STABLE, RT BROUGHT BIPAP AND BREATHING TREATMENT ADMINISTERED BY RT. HAS CALL LIGHT WITHIN REACH AND IN THE RECLINER
--- NOTE | 2024-04-13 14:41 | NUR ---
SISTER WAS CALLED AND UPDATED ABOUT TRANSFER AND ROOM CHANGE. SHE STATED SHE WOUDL UPDATE THE DAUGHTER.
--- NOTE | 2024-04-13 18:04 | NUR ---
END OF SHIFT SUMMARY: PATIENT IS ALERT AN ORIENTED 3-4 WAS NOT ABLE TO GIVE ME THE DATE. IS SATTING ?92% ON ROOM AIR, AT NIGHT HE WEARS THE BIPAP AT 12/6 AND 40% FIO2, RT IS MANAGING. HAS A WEAK COUGH AND LUNG SOUNDS ARE WHEEZE. IS ON TELE SHOWING NORMAL SINUS RYTHM WITH RATE IN 80'S, BLOOD PRESSURE STABLE. DENIED CHEST PAIN/PRESSURE WHILE HERE. WAS SEEN BY SPEECH TODAY PREVIOUSLY TO TRANFERRING TO UNIT AND IS ON MILD THICK LIQUID WITHOUT A STRAW AND IS A SOFT DIET WITH MEDICATIONS IN APPLESAUCE. IS A 1 PERSON ASSIST TO USE BED SIDE COMMODE AND USES THE URINAL. WAS BLADDER SCANNED AFTER ATTEMPTING TO USE THE URINAL AND HAVING A SMALL VOID, BLADDER SCAN READING WAS 246MLS/HR. HAD AN ANGIOGRAM DONE 11.2 AND RIGHT RADIAL SITE HAS SOME BRUISING BUT NO BLEEDING. WAS SEEN BY PT AND THEY REPORTED PATIENT HAS A LEFT FOOT DROP. WILL REPORT TO ONCOMING NUCLEAR CHEMISTRY TECHNICIAN RN.
--- NOTE | 2024-04-13 19:51 | NUR ---
ASSUMPTION OF CARE: PATIENT GREATLY NEEDS TO HAVE BIPAP WHILE SLEEPING, DID TAKE A SECOND TO BE ABLE TO ANSWER ORIENTING QUESTIONS AFTER BEING ASLEEP WITHOUT BIPAP FOR 20 MINUTES. PATIENT AGREEABLE AND REDIRECTABLE ABLE TO ANSWER ORIENTATION QUESTIONS APPROPRIATELY BED ALARM ON BIPAP PLACED. VSS DENIES CHEST PAIN PRESSURE OR SOB AT REST. IV'S FLUSHED. PATIENT LAYING IN BED ATTEMPTING TO SLEEP. [facility] PATIENT DID HAVE A BM AND INCONTINENT VOID PRIOR TO TRANSFER TO BED. PLAN OF CARE CONTINUES.
[2024-04-14] VITALS (7 sets, daily range): BP systolic 135–161; BP diastolic 68–107
[2024-04-14] MEDS ORDERED: Tamsulosin HCl 0.4 MG Cap PO SCH ×3 (00:15→21:00)
[2024-04-14 04:56] LABS: Source, Urine Foley catheter
[2024-04-14 04:59] LABS: Bilirubin, Urine Neg (Neg); Blood, Urine 4+ (Neg); Glucose Qualitative, Urine Neg (Neg); Ketones, Urine 1+ (Neg); Leukocyte Esterase, Urine Neg (Neg); Nitrite, Urine Neg (Neg); Protein, Urine 4+ (Neg); Urobilinogen, Urine NORM (Normal)
[2024-04-14 05:06] LABS: Appearance, Urine Turbid (Clear); Color, Urine Red (P-Yellow)
[2024-04-14 05:07] LABS: Red Blood Cells, Urine TNTC /hpf (0-2); Squamous Epithelial Cells Rare /hpf (Few)
[2024-04-14 05:08] LABS: Bacteria Few /hpf; Mucus Light (0-Heavy)
[2024-04-14 06:06] LABS: BASOPHILS ABSOLUTE AUTO 0.03 K/mm3 (0.00-0.23); BASOPHILS PERCENT AUTO 0 % (0-2); EOSINOPHILS ABSOLUTE AUTO 0.04 K/mm3 (0.00-0.68); EOSINOPHILS PERCENT AUTO 0 % (0-6); Hematocrit 25.9 % (37.0-53.0); Hemoglobin 8.8 g/dL (13.5-17.5); IMMATURE GRAN ABSOLUTE AUTO 0.22 K/mm3 (0.00-0.10); IMMATURE GRAN PERCENT AUTO 1 % (0-1); LYMPHOCYTES PERCENT AUTO 12 % (21-46); MONOCYTES ABSOLUTE AUTO 1.08 K/mm3 (0.16-1.47); MONOCYTES PERCENT AUTO 7 % (4-13); Mean Corpuscular HGB 31.9 pg (26.0-34.0); Mean Corpuscular Volume 94 fL (80-100); Mean Platelet Volume 9.4 fL (9.1-12.4); NEUTROPHILS ABSOLUTE AUTO 12.51 K/mm3 (1.96-9.15); NEUTROPHILS PERCENT AUTO 79 % (41-73); Platelet Count 349 K/mm3 (150-400); RDW Coefficient Variation 14.6 % (11.7-14.2); RDW Standard Deviation 49.5 fL (35.1-46.3); Red Blood Cell Count 2.76 M/mm3 (4.30-5.90); White Blood Cell Count 15.78 K/mm3 (4.00-11.30)
[2024-04-14 06:47] LABS: Albumin, Blood 2.5 g/dL (3.4-5.0); Albumin/Globulin Ratio 0.7 (0.8-1.8); Bilirubin, Total 0.6 mg/dL (0.1-1.0); Bun/Creatinine Ratio 25.2 (12.0-20.0); Calcium, Blood 8.5 mg/dL (8.5-10.1); Creatinine, Blood 1.03 mg/dL (0.60-1.20); Globulin, Blood 3.4 g/dL (2.2-4.0); Potassium, Blood 3.5 mmol/L (3.5-5.5); Total Protein, Blood 5.9 g/dL (6.4-8.2)
--- NOTE | 2024-04-14 07:15 | NUR ---
EOS: PATIENT THROUGH THE NIGHT HAD EXTENSIVE URINARY RETENTION, SPOKE WITH EHOSPITALIST AND FLOMAX WAS RESTARTED, THROUGH THE NIGHT THE PATIENT DID NOT IMPROVE TO WHICH HE REQUIRED A STRAIGHT CATH, STRAIGHT CATH WAS DIFFICULT 14 FR USED, AND PATIENT EMPTIED 225 OF THE SCANNED 350, PATIENT WITH MUCH RELIEF. THE NIGHT PROGRESSED, PATIENT HAD INCREASED BLOOD URINE TO WHICH I NOTIFIED HOSPITALIST. HOSPITALST SAID DUE TO RECENT INDWELLING CATHETER AND AMOUNT OF BLOOD TO PLACE A CLEMENT CATHETER FOR ACUTE RETENTION AND HAVE DAY TEAM REEVALUATE FLOMAX DOSING AND AMOUNT. CLEMENT PLACED WITH AN INTIAL EMPTYING OF ~330. CLEMENT CATHETER PLACEMENT WAS ONLY MINORLY DIFFICULT. PATIENT TOLERATED BOTH WELL. PATIENT THEN REUIRED MANUAL IRRIGATION DUE TO CLOTS. SPOKE WITH HOSPITALIST PATIENT OT HAVE Q4 IRRIGATION PROVIDED. LINK NOTIFY PLACED. PATIENT WORE THE BIPAP FOR MOST OF THE NIGHT, RECIEVING Q4 DUO NEB TREATMENTS LUNG SOUNDS STILL VERY WHEEZY THROUGHOUT WITH ONLY MINIMAL IMPROVEMNT. PATIENT STILL DENIES CHEST PAIN PRESSURE OR SOB. VERY MINIMAL ORAL INTAKE. HR IN THE 70-100 DEP[address]ING ON EXERTION SR. TELE IN PLACE. SPO2 >93% WHILE ON RA OR BIPAP WHILE SLEEPING. NO BM, VERY MINIMAL <100 ORAL INTAKE.
--- NOTE | 2024-04-14 09:48 | NUR ---
ASSUMPTION OF CARE: THIS RN ASSUMED CARE OF PT AT APPROX 0715. PT ALERT, ORIENTED X3-4 THIS AM. ABLE TO ANSWER QUESTIONS AND COMMUNICATE NEEDS W/ STAFF. PT FORGETFUL AT TIMES, BED ALARM ON FOR SAFETY. THIS RN & OFFGOING RN COMPLETED MANUAL BLADDER IRRIGATION AT 0720. CLEMENT CATH CONTINUES TO DRAIN RED URINE W/ SMALL CLOTS. MD FERRELL AWARE. VSS. SINUS RHYTHM ON TELE, BP STABLE. DENIES CHEST PAIN/PRESSURE. SPO2 >90% ON ROOM AIR, BIPAP AT BEDSIDE. WHEEZE AUSCULTATED BILATERALLY. ABD SOFT, NONTENDER, BT+ X4. SPEECH THERAPY IN TO SEE PT THIS AM, TOLERATING PO INTAKE & THICKENED LIQUIDS WELL. MEDS WHOLE W/ APPLESAUCE. NO OTHER NEEDS AT THIS TIME, CALL LIGHT IN REACH.
[2024-04-14] MEDS ORDERED: Piperacillin/Tazobactam Sod 4.5 GM in NS 100 ML IV SCH (13:00)
--- NOTE | 2024-04-14 13:14 | NUR ---
PHYSICIAN CONTACT: PT W/ DARKENING URINE NOTED; URINE THIS AFTERNOON DARK RED/MAROON COLOR W/ FREQUENT CLOTS. CALL PLACED TO MD FERRELL. W/ ORDERS TO INITIATE CONTINUOUS BLADDER IRRIGATION, RECHECK CBC THIS AFTERNOON, AND INCREASE DOSE OF FLOMAX. CLEMENT CATH REMOVED & 3-WAY CATH PLACED BY THIS RN AT APPROX 1300. CONTINUOUS BLADDER IRRIGATION INITIATED. PT TOLERATED CATH INSERTION WELL.
[2024-04-14 14:34] LABS: Hematocrit 25.9 % (37.0-53.0); Hemoglobin 8.8 g/dL (13.5-17.5); Mean Corpuscular HGB 31.2 pg (26.0-34.0); Mean Corpuscular Volume 92 fL (80-100); Mean Platelet Volume 9.5 fL (9.1-12.4); Platelet Count 393 K/mm3 (150-400); RDW Coefficient Variation 14.6 % (11.7-14.2); RDW Standard Deviation 48.2 fL (35.1-46.3); Red Blood Cell Count 2.82 M/mm3 (4.30-5.90); White Blood Cell Count 16.75 K/mm3 (4.00-11.30)
--- NOTE | 2024-04-14 14:47 | NUR ---
Spiritual Care Visit. Pt. is awake in bed when he pleastantly welcomes my visit. Pt. verbalized that he remembered thsi director social service from a previous visit. Facilitated an update of his current condition and care. Pt. displayed evidence of being engaged and aware. Listen with empathy and a calming presence. Prayed with Pt. Pt. verbalized gratitude for the spiritual care visit and welcomed this director social service to return.
--- NOTE | 2024-04-14 17:56 | NUR ---
END OF SHIFT NOTE: PT ALERT, ORIENTED X2-4 T/O SHIFT. MENTATION HAS FLUCTUATED. AT TIMES, PT IN BED PULLING OFF ALL CLOTHING, CORDS, AND LINES WHILE DISORIENTED. AT OTHER TIMES, PT IS COMPLETELY ORIENTED AND ABLE TO COMMUNICATE NEEDS APPROPRIATELY. VSS. HR 70-90'S, SINUS RHYTHM ON TELE. SBP 130-150'S, DENIES CHEST PAIN/PRESSURE. SPO2 >90% ON ROOM AIR, BIPAP REMAINS AT BEDSIDE. CONTINUOUS BLADDER IRRIGATION INFUSING. CLEMENT CATH CONTINUES TO DRAIN PINK/RED URINE W/ RED CLOTS. BED BATH COMPLETED THIS SHIFT, ATTENDS IN PLACE. PT ABLE TO REPOSITION SELF INDEPENDENTLY W/ STAFF ASSIST FOR BOOSTS IN BED. TOLERATING PO INTAKE WELL. NO OTHER NEEDS AT THIS TIME, CALL LIGHT IN REACH. BED ALARM ON FOR PT SAFETY.
[2024-04-15] VITALS (7 sets, daily range): BP systolic 141–153; BP diastolic 66–84
[2024-04-15 04:05] LABS: BASOPHILS ABSOLUTE AUTO 0.02 K/mm3 (0.00-0.23); BASOPHILS PERCENT AUTO 0 % (0-2); EOSINOPHILS ABSOLUTE AUTO 0.02 K/mm3 (0.00-0.68); EOSINOPHILS PERCENT AUTO 0 % (0-6); Hematocrit 24.8 % (37.0-53.0); Hemoglobin 8.4 g/dL (13.5-17.5); IMMATURE GRAN ABSOLUTE AUTO 0.17 K/mm3 (0.00-0.10); IMMATURE GRAN PERCENT AUTO 1 % (0-1); LYMPHOCYTES ABSOLUTE AUTO 1.49 K/mm3 (0.84-5.20); LYMPHOCYTES PERCENT AUTO 9 % (21-46); MONOCYTES ABSOLUTE AUTO 1.14 K/mm3 (0.16-1.47); MONOCYTES PERCENT AUTO 7 % (4-13); Mean Corpuscular HGB 31.5 pg (26.0-34.0); Mean Corpuscular HGB Conc 33.9 g/dL (31.5-36.5); Mean Corpuscular Volume 93 fL (80-100); Mean Platelet Volume 9.4 fL (9.1-12.4); NEUTROPHILS ABSOLUTE AUTO 13.17 K/mm3 (1.96-9.15); NEUTROPHILS PERCENT AUTO 82 % (41-73); Platelet Count 365 K/mm3 (150-400); RDW Coefficient Variation 14.7 % (11.7-14.2); RDW Standard Deviation 49.1 fL (35.1-46.3); Red Blood Cell Count 2.67 M/mm3 (4.30-5.90); White Blood Cell Count 16.01 K/mm3 (4.00-11.30)
[2024-04-15 04:27] LABS: Albumin, Blood 2.6 g/dL (3.4-5.0); Albumin/Globulin Ratio 0.8 (0.8-1.8); Bilirubin, Total 0.6 mg/dL (0.1-1.0); Bun/Creatinine Ratio 21.7 (12.0-20.0); Calcium, Blood 8.2 mg/dL (8.5-10.1); Creatinine, Blood 1.06 mg/dL (0.60-1.20); Globulin, Blood 3.2 g/dL (2.2-4.0); Potassium, Blood 3.2 mmol/L (3.5-5.5); Total Protein, Blood 5.8 g/dL (6.4-8.2)
--- NOTE | 2024-04-15 04:52 | NUR ---
SHIFT SUMMARY. SHIFT HAS BEEN LARGELY UNREMARKABLE. PT REMAINS CONFUSED THROUGHOUT SHIFT, AOX~2, IMPULSIVE AT TIMES BUT THUS FAR HAS BEEN EASILY REDIRECTABLE. NO PAIN REPORTED THROUGHOUT SHIFT. HAS WORN BIPAP SPORADICALLY THROUGHOUT SHIFT, ONLY FOR AN HOUR OR SO AT A TIME BEFORE TAKING IT OFF AND REFUSING TO PUT IT BACK ON. PT HAS BEEN ON ROOM AIR FOR MOST OF SHIFT AND HAS MAINTAINED ADEQUATE SATURATION >92%. VITALS STABLE. ABX ADMINISTERED ON TIME AND WITHOUT DIFFCIULTY. CONTINUES TO RUN SINUS ON TELE. CONTINUOUS BLADDER IRRIGATION RUNNING THROUGHOUT SHIFT. URINE OUTPUT CHARTED APPROPRIATELY OUTSIDE OF FIRST TIME CLEMENT WAS EMPTY WHEN IT WAS UNCLEAR HOW MUCH OF EMPTIED CLEMENT WAS BLADDER IRRIGATION VS URINE. PT HAS NOT COMPLAINED OF PAIN/PRESSURE ASSOCIATED WITH CLEMENT. BED LOCKED IN LOWEST POSITION. CALL LIGHT LEFT WITHIN REACH. CONTINUING TO MONITOR.
[2024-04-15] MEDS ORDERED: Potassium Chloride 20 MEQ TabCR PO ONE (07:00)
--- NOTE | 2024-04-15 11:39 | NUR ---
PT'S SISTER MATT AT BEDSIDE AND UPDATED ON CARE.
--- NOTE | 2024-04-15 14:26 | NUR ---
SPiritual Care Visit. Pt. is awake in bed when he welcomes my visit. Pt. is pleasant. Facilitate an update. Pt. verbalized that he did not sleep well overnight and was tired. Listened with empathy and Prayed with the Pt. Pt. verbalized gratitude for the spiirutal care visit.
--- NOTE | 2024-04-15 18:07 | NUR ---
SHIFT SUMMARY THE PT IS A&OX2-3, BUT CAN BE FORGETFUL. HE IS A 1P SBA W/ FWW. HE HAS BEEN UP IN THE CHAIR FOR ALL MEALS TODAY. SPEECH THERAPY CAME AND REASSESSED THE PT AND HE IS ON A REG DIET W/ THIN LIQUIDS. SUPRIVISON NO LONGER REQUIRED AT THIS TIME. THE PT HAS BEEN SR ON TELE AND BP STABLE. HE IS ON RA AND SP02 >90%. THE PT HAS A CLEMENT W/ CONT IRRIGATION. THE PT DID HAVE TWO MANUAL IRRIGATION'S D/T BLOOD CLOTS. THIS WAS DISCUSSED W/ DR. HOLLEY. THE PT HAS HAD SOME LEAKING AROUND HIS CLEMENT WHEN IT IS GETTING CLOGGED. NO ACUTE EVENTS. SEE NOTES FOR UPDATES. FAMILY AT THE BEDSIDE AND UPDATED ON CARE. SEE NOTES FOR UPDATES
[2024-04-15] MEDS ORDERED: Sacubitril/Valsartan 24 MG-26 MG Tab PO SCH (21:00)
--- NOTE | 2024-04-15 21:11 | NUR ---
ASSUMPTION OF CARE NOTE. PT AOX2-3, PLEASANT, COOPERATIVE, ABLE TO MAKE NEEDS KNOWN. CONTINUOUS BLADDER IRRIGATION CONTINUES TO RUN. URINE IS MUCH MORE CLEAR THAN PREVIOUS SHIFT WITH THIS RN. STILL REMAINS MILDLY PERFECTO TINTED BUT IS NOT NEARLY DARK. PT REMAINS SOMEWHAT WHEEZY BUT THIS HAS ALSO IMPROVED FROM PREVIOUS SHIFT WITH THIS RN. VITALS STABLE. ABX INFUSING. RUNNING SINUS ON TELE. MAINTAINING ADEQUATE SATURATION ON ROOM AIR. DENIES PAIN. REFUSING BIPAP TONIGHT, WILL APPROACH SUBJECT AGAIN LATER. BED LOCKED IN LOWEST POSITION. CALL LIGHT LEFT WITHIN REACH. CONTINUING TO MONITOR.
[2024-04-16 01:09] VITALS: BP 105/65
--- NOTE | 2024-04-16 01:24 | NUR ---
0000 NOTE. PT RESTLESS THIS EVENING. REMAINS CONFUSED. BLADDER IRRIGATION CONTINUES TO RUN. FIRST BAG EMPTIED, DOCUMENTED URINE OUTPUT APPROPRIATELY. MANUALLY IRRIGATED BLADDER WHILE SWITCHING OVER BLADDER IRRIGATION BAGS. WAS ABLE TO CLEAR FEW CLOTS OF VARYING SIZES. BED ALARM REMAINS ACTIVE FOR SAFETY. BED LOCKED IN LOWEST POSITION. CALL LIGHT LEFT WITHIN REACH. CONTINUING TO MONITOR.
[2024-04-16 03:27] VITALS: BP 151/77
[2024-04-16 04:27] LABS: BASOPHILS ABSOLUTE AUTO 0.02 K/mm3 (0.00-0.23); BASOPHILS PERCENT AUTO 0 % (0-2); EOSINOPHILS ABSOLUTE AUTO 0.02 K/mm3 (0.00-0.68); EOSINOPHILS PERCENT AUTO 0 % (0-6); Hematocrit 24.4 % (37.0-53.0); Hemoglobin 8.3 g/dL (13.5-17.5); IMMATURE GRAN ABSOLUTE AUTO 0.14 K/mm3 (0.00-0.10); IMMATURE GRAN PERCENT AUTO 1 % (0-1); LYMPHOCYTES ABSOLUTE AUTO 1.18 K/mm3 (0.84-5.20); LYMPHOCYTES PERCENT AUTO 8 % (21-46); MONOCYTES ABSOLUTE AUTO 1.34 K/mm3 (0.16-1.47); MONOCYTES PERCENT AUTO 9 % (4-13); Mean Corpuscular HGB 31.4 pg (26.0-34.0); Mean Corpuscular Volume 92 fL (80-100); Mean Platelet Volume 9.7 fL (9.1-12.4); NEUTROPHILS ABSOLUTE AUTO 12.72 K/mm3 (1.96-9.15); NEUTROPHILS PERCENT AUTO 83 % (41-73); Platelet Count 350 K/mm3 (150-400); RDW Coefficient Variation 14.9 % (11.7-14.2); RDW Standard Deviation 49.5 fL (35.1-46.3); Red Blood Cell Count 2.64 M/mm3 (4.30-5.90); White Blood Cell Count 15.42 K/mm3 (4.00-11.30)
--- NOTE | 2024-04-16 04:50 | NUR ---
shift summary. shift has overall been unremarkable. pt remains confused but overall condition is unchanged throughout shift, see previous notes for details. continue to manually irrigate bladder prn to clear clots, still clearing some scant clots every time but urine is much less blood tinged. almost entirely clear urine. continuous bladder irrigation still running. bed locked in lowest position. call light left within reach. continuing to monitor.
[2024-04-16 05:56] LABS: Albumin, Blood 2.4 g/dL (3.4-5.0); Albumin/Globulin Ratio 0.8 (0.8-1.8); Bilirubin, Total 0.6 mg/dL (0.1-1.0); Calcium, Blood 8.1 mg/dL (8.5-10.1); Creatinine, Blood 1.05 mg/dL (0.60-1.20); Globulin, Blood 3.2 g/dL (2.2-4.0); Potassium, Blood 3.3 mmol/L (3.5-5.5); Total Protein, Blood 5.6 g/dL (6.4-8.2)
[2024-04-16] MEDS ORDERED: Potassium Chloride 20 MEQ TabCR PO SCH (08:00)
[2024-04-16] MEDS ORDERED: Metoprolol Succinate 50 MG TABCR PO SCH (09:00)
[2024-04-16] MEDS ORDERED: Empagliflozin 10 MG TAB PO SCH (09:00)
[2024-04-16] MEDS ORDERED: PredniSONE 20 MG Tab PO SCH (09:00)
[2024-04-16] MEDS ORDERED: Spironolactone 12.5 MG TAB PO SCH (09:00)
[2024-04-16 09:04] VITALS: BP 115/61
--- NOTE | 2024-04-16 09:58 | NUR ---
I CALLED DR. HOLLEY ABOUT PCU O7 AND HE WANTED THE PT'S CONT IRRIGATION TO BE CLAMPED. THIS WAS CLAMPED AT 0930. THE PT IS NOW MEDICAL STATUS W/ TELE. THE BIPAP WAS REMOVED FROM THE ROOM D/T LACK OF INDICATION. SP02 >93% ON RA, THE PT DENIES ANY SOB. SEE NOTES FOR ANY UPDATES.
[2024-04-16] MEDS ORDERED: Piperacillin/Tazobactam Sod 4.5 GM ONE (13:31)
[2024-04-16] MEDS ORDERED: Potassium Chloride 20 MEQ TabCR PO ONE (13:45)
--- NOTE | 2024-04-16 14:34 | NUR ---
I CALLED DR. HOLLEY ABOUT THE PT'S CLEMENT. HE BEGAN HAVING HEMATURIA AND SOME CLOTS NOTED ABOUT 1400. HE WAS BLADDER SCANNED W/ 0ML IN HIS BLADDER. DR. HOLLEY STATED TO RESUME CONTINOUS IRRIGATION. CLEMENT IRRIGATION WAS CLAMPED [id number].
[2024-04-16 15:50] VITALS: BP 127/75
--- NOTE | 2024-04-16 18:06 | NUR ---
SHIFT SUMMARY THE PT IS DROWSY BUT ORIENTED X3 BETWEEN THE LATE MORNING AND EARLY EVENING. FIRST THING IN THE MORNING AND ABOUT 1700 THE PT BECOMES MORE CONFUSED, PULLING AT LINES, AND CLIMBING OUT OF BED WITHOUT CALLING FOR HELP. DR. HOLLEY ORDERED 25MG SEREQUEL STARTING TONIGHT TO HELP THE PT GET A NIGHT OF REST TO HELP WITH MENTATION. THE PT'S DAUGHTER ALSO REQUESTED THE PT TO GET MEDICATIONS TO HELP WITH TROUBLE SLEEPING. ON TELE HE HAS BEEN SR/ST 80'S-130'S. HIS HR WAS ELEVATED IN THE MORNING BEFORE AM MEDICATIONS. HE HAS A SMALL BEAT RUN OF SVT AND WAS ASYMPTOMATIC. HE HAS BEEN ON RA AND SP02 >93%. THE PT HAS HIS CONTINOUS BLADDER IRRIGATION INFUSING PER DR. HOLLEY. SEE PREVIOUS NOTE ABOUT ATTEMPT TO STOP THE IRRIGATION. BED ALARM REMAINS ON, FAMILY UPDATED ON CARE, AND HIS CALL LIGHT IS IN REACH. SEE NOTES FOR ANY UPDATES.
[2024-04-16 20:49] VITALS: BP 164/77
[2024-04-16] MEDS ORDERED: QUEtiapine Fumarate 25 MG Tab PO SCH (21:00)
[2024-04-16 22:59] LABS: Base Excess Venous 0.8 mmol/L; Bicarbonate Venous 25.2 mmol/L (24.0-30.0); PCO2 Venous 29.5 mmHg (38-42); pH Blood Venous 7.51 (7.34-7.37)
--- NOTE | 2024-04-16 23:55 | NUR ---
LATE NOTE. SPOKE WITH DR. GUZMAN REGARDING INCREASINGLY POOR MENTATION. PREVIOUS SHIFTS WITH THIS RN, PT WAS CONFUSED BUT LESS SO AND MORE DIRECTABLE, MORE CALM, LESS IMPULSIVE. TONIGHT PATIENT HAS BEEN MORE IMPULSIVE, VERY IRRITABLE AT TIMES, DIFFICULT TO REDIRECT, INCONINENT OF BOWEL, PULLING AT LINES, MORE CONFUSED, ETC. DR. GUZMAN ORDERED LACTIC AND VBG. WILL SPEAK AGAIN WITH DR. GUZMAN WITH RESULTS OF LABS. CONTINUING TO MONITOR.
[2024-04-17 00:28] VITALS: BP 138/79
[2024-04-17] MEDS ORDERED: OLANZapine 10 MG Vial IM PRN (00:50)
[2024-04-17 03:43] VITALS: BP 160/69
[2024-04-17 04:25] LABS: BASOPHILS ABSOLUTE AUTO 0.02 K/mm3 (0.00-0.23); BASOPHILS PERCENT AUTO 0 % (0-2); EOSINOPHILS ABSOLUTE AUTO 0.01 K/mm3 (0.00-0.68); EOSINOPHILS PERCENT AUTO 0 % (0-6); Hematocrit 24.9 % (37.0-53.0); Hemoglobin 8.5 g/dL (13.5-17.5); IMMATURE GRAN ABSOLUTE AUTO 0.18 K/mm3 (0.00-0.10); IMMATURE GRAN PERCENT AUTO 1 % (0-1); LYMPHOCYTES ABSOLUTE AUTO 1.05 K/mm3 (0.84-5.20); LYMPHOCYTES PERCENT AUTO 6 % (21-46); MONOCYTES ABSOLUTE AUTO 1.41 K/mm3 (0.16-1.47); MONOCYTES PERCENT AUTO 8 % (4-13); Mean Corpuscular HGB 31.6 pg (26.0-34.0); Mean Corpuscular HGB Conc 34.1 g/dL (31.5-36.5); Mean Corpuscular Volume 93 fL (80-100); NEUTROPHILS ABSOLUTE AUTO 14.18 K/mm3 (1.96-9.15); NEUTROPHILS PERCENT AUTO 84 % (41-73); Platelet Count 388 K/mm3 (150-400); RDW Coefficient Variation 15.1 % (11.7-14.2); RDW Standard Deviation 49.3 fL (35.1-46.3); Red Blood Cell Count 2.69 M/mm3 (4.30-5.90); White Blood Cell Count 16.85 K/mm3 (4.00-11.30)
--- NOTE | 2024-04-17 04:27 | NUR ---
SHIFT SUMMARY. PT HAS BEEN CONFUSED, IMPULSIVE, RESTLESS THROUGHOUT MOST OF SHIFT. UNABLE TO TELL ME HIS LAST NAME OR MOST OF THE TIME, UNABLE TO ANSWER ANY OTHER ORIENTATION QUESTIONS APPROPRIATELY OTHER THAN STATING THAT HE IS IN THE "HOSPITAL" WITH NO EXPANDED DETAILS. CONTINUOUS BLADDER IRRIGATION CONTINUES TO RUN, MANUALLY IRRIGATED PRN. SPOKE WITH DR. GUZMAN FEW TIMES REGARDING PT MENTATION. ORDERED ONE TIME ZYPREXA IM TO ALLOW PT TO RELAX WHICH HELPED SOMEWHAT BUT PT REMAINS RESTLESS. LACTIC WNL. NOT HYPERCAPNIC. BED ALARM REMAINS ACTIVE FOR SAFETY. PT HAS NOT PULLED CLEMENT OR IV BUT FREQUENTLY PULLS OFF PULSE OX, TELE MONITORING, BP CUFF, ETC. WHEN ASKED HOW HE IS FEELING HE REPORTS FEELING "OKAY". MOSTLY COOPERATIVE WITH CARE BUT SOMEWHAT IRRITABLE AND IMPULSIVE AT TIMES. OTHERWISE SHIFT HAS BEEN UNREMARKABLE. CONTINUES TO RUN SINUS WITH PVCs AND PACs ON TELE. BP SOMEWHAT ELEVATED AT TIMES BUT HAS BEEN STABLE. CONTINUES TO MAINTAIN ADEQUATE SATURATION ON ROOM AIR. PT STILL HAS FREQUENT HACKING, CONGESTED COUGH. WAS MORE CLEAR ON AUSCULTATION OF LUNGS EARLY IN SHIFT WHEN HE WAS SITTING UPRIGHT. MORE WHEEZY ON AUSCULTATION WHEN LYING FLAT. STILL REMAINS LESS WHEEZY THAN PREVIOUS SHIFTS WITH THIS RN. BED LOCKED IN LOWEST POSITION. CALL LIGHT LEFT WITHIN REACH. CONTINUING TO MONITOR.
[2024-04-17 04:51] LABS: Albumin, Blood 2.5 g/dL (3.4-5.0); Albumin/Globulin Ratio 0.8 (0.8-1.8); Bilirubin, Total 0.7 mg/dL (0.1-1.0); Bun/Creatinine Ratio 17.1 (12.0-20.0); Calcium, Blood 8.1 mg/dL (8.5-10.1); Creatinine, Blood 1.11 mg/dL (0.60-1.20); Globulin, Blood 3.2 g/dL (2.2-4.0); Potassium, Blood 3.6 mmol/L (3.5-5.5); Total Protein, Blood 5.7 g/dL (6.4-8.2)
[2024-04-17 07:12] VITALS: BP 128/55
--- NOTE | 2024-04-17 09:05 | NUR ---
am note this rn assumed care at 0700. vital signs stable. tele sinus rhythm 90-100s. patient is more alert once being waking up and oriened x3. patient got the date wrong. patient denies pain, chest pain/pressure or shortness of breath. bladder irrigation continues to go. color is yellow in catheter. lung sounds clear upper lobes and dim lower lobes. see shift assessment for further detials. md daiz in to see patient this am. plan remains up to date. md STEWART in to see patient. plan remains up to date
[2024-04-17 11:09] VITALS: BP 117/62
[2024-04-17 16:12] VITALS: BP 129/64
[2024-04-17] MEDS ORDERED: Sacubitril/Valsartan 49 MG/51 MG Tab PO SCH (18:00)
--- NOTE | 2024-04-17 18:08 | NUR ---
shift summary see previous notes. patient bladder irrigation clamped and then released and irrigated to check for clots or hematuria. there was none. called md diaz and orders for irrigation to be stopped but to keep [address]. patient aware of plan. vitals remain stable. no acute changes throughout the shift. plan remains up to date.
--- NOTE | 2024-04-17 18:41 | NUR ---
update this rn called daughter alonzo at [phone], and left a voicemail at [phone] that the patient is moving to room surgical 214. this rn then called family britton, to let her know and their was no ring tone at 1842 phone number [phone]. report given to bello on surgical
[2024-04-17 18:56] VITALS: BP 140/66
--- NOTE | 2024-04-17 19:17 | NUR ---
TRANSFER: REPORT RECEIVED FROM LUMBER LOADERZACK BUSTILLOS. PT TO UNIT AT 1835. PT IS A/O, TELE BOX VERIFIED, SR 78. PT ORIENTED TO ROOM AND CALL LIGHT. BED ALARM ON FOR SAFETY. REPORT PASSED TO NOC ZACK FRANCE AT BEDSIDE
--- NOTE | 2024-04-18 03:27 | NUR ---
SHIFT SUMMARY PT HAS BEEN RESTLESS MOST OF THE NIGHT. PT WAS A/O AT THE START OF THE SHIFT, BUT THE NIGHT PROGRESSED PT BECAME INCREASINGLY CONFUSED. PT BEGAN PULLING ON HIS LINES, REMOVING HIS TELEMETRY, AND ATTEMPTING TO GET OOB, AND HAS BECOME CONFUSED TO HIS SURROUNDINGS. PT REMOVED BOTH HIS IV'S. PT REORIENTED PRN BUT STILL CONTINUES TO GET OOB. BED ALARM IN PLACE. CLEMENT IN PLACE PATENT AND DRAINING, YELLOW URINE WITH ADEQAUTE OUTPUT WITH FEW CLOTS NOTED IN TUBING THIS AM. VITALS STABLE. PLAN OF CARE REMAINS UNCHANGED. BED IN LOWEST POSITION, CALL LIGHT WITHIN REACH.
[2024-04-18 03:37] VITALS: BP 152/67
[2024-04-18 06:35] LABS: BASOPHILS ABSOLUTE AUTO 0.02 K/mm3 (0.00-0.23); BASOPHILS PERCENT AUTO 0 % (0-2); EOSINOPHILS ABSOLUTE AUTO 0.05 K/mm3 (0.00-0.68); EOSINOPHILS PERCENT AUTO 0 % (0-6); Hematocrit 24.7 % (37.0-53.0); Hemoglobin 8.2 g/dL (13.5-17.5); IMMATURE GRAN ABSOLUTE AUTO 0.14 K/mm3 (0.00-0.10); IMMATURE GRAN PERCENT AUTO 1 % (0-1); LYMPHOCYTES ABSOLUTE AUTO 1.33 K/mm3 (0.84-5.20); LYMPHOCYTES PERCENT AUTO 9 % (21-46); MONOCYTES ABSOLUTE AUTO 1.37 K/mm3 (0.16-1.47); MONOCYTES PERCENT AUTO 9 % (4-13); Mean Corpuscular HGB 31.3 pg (26.0-34.0); Mean Corpuscular HGB Conc 33.2 g/dL (31.5-36.5); Mean Corpuscular Volume 94 fL (80-100); NEUTROPHILS ABSOLUTE AUTO 12.25 K/mm3 (1.96-9.15); NEUTROPHILS PERCENT AUTO 81 % (41-73); Platelet Count 384 K/mm3 (150-400); RDW Coefficient Variation 14.9 % (11.7-14.2); RDW Standard Deviation 50.9 fL (35.1-46.3); Red Blood Cell Count 2.62 M/mm3 (4.30-5.90); White Blood Cell Count 15.16 K/mm3 (4.00-11.30)
[2024-04-18 06:55] LABS: Bun/Creatinine Ratio 15.5 (12.0-20.0); Calcium, Blood 8.3 mg/dL (8.5-10.1); Creatinine, Blood 1.16 mg/dL (0.60-1.20); Potassium, Blood 3.1 mmol/L (3.5-5.5)
[2024-04-18 07:10] VITALS: BP 144/66
[2024-04-18] MEDS ORDERED: Metoprolol Succinate 50 MG TABCR PO SCH (09:00)
[2024-04-18] MEDS ORDERED: Spironolactone 25 MG Tab PO SCH (09:00)
[2024-04-18] MEDS ORDERED: AmLODIPine Besylate 5 MG Tab PO SCH (09:00)
--- NOTE | 2024-04-18 10:09 | NUR ---
Pt sitting up in chair for breakfast, he is a/ox3-4 forgetful at times, cooperative with care, follows commands well, lungs are clear in upper cobb, course in bases, resp even and unlabord, no cough noted at this time, on r/a, becomes dyspnic with activity, hrr, tele in place running sr per monitor, see strip, no edema noted, ppp+1, cap refill <3 sec, vs stable, afebrile, piv to lfa site is clear and patent, infusing abx as ordered, btx4, abd flat soft nontender, ortiz cath in place draining clear og urine, skin has scattered bruising otherwise c/w/d, [place], call light in reach.
[2024-04-18] MEDS ORDERED: Piperacillin/Tazobactam Sod 4.5 GM in NS 100 ML IV SCH (12:00)
--- NOTE | 2024-04-18 12:17 | NUR ---
pt resting quietly in bed, family was in to visit, call light in reach.
[2024-04-18] MEDS ORDERED: Potassium Chloride 20 MEQ TabCR PO ONE (15:00)
[2024-04-18 15:07] VITALS: BP 139/63
[2024-04-18] MEDS ORDERED: Carvedilol 6.25 MG Tab PO SCH (18:00)
--- NOTE | 2024-04-18 18:03 | NUR ---
pt sat up in the chair this am, has been sleeping on and off the rest of the day, no further changes this shift. call light in reach.
[2024-04-18 19:29] VITALS: BP 139/68
[2024-04-18] MEDS ORDERED: QUEtiapine Fumarate 25 MG Tab PO PRN (23:05)
[2024-04-18] MEDS ORDERED: HYDROcodone 5-APAP 325 TAB PO PRN (23:05)
--- NOTE | 2024-04-19 04:06 | NUR ---
SHIFT SUMMARY PT HAS PERIODS OF RESTLESSNESS AND AGIGATION T/O THE NIGHT. PT PULLED HIS IV OUT AT SHIFT CHANGE. INTERMITTENTLY REMOVES TELE AND LEADS, PULLS AT LINES AND REMOVES HIS GOWN. SWINGS LEGS OFF THE SIDE OF THE BED IN AN ATTEMPT TO GET OOB. WHEN PT ASKED IF HE KNOWS WHERE HE IS, HE IS AWARE THAT HE IS IN THE HOSPITAL, AND KNOWS THE MONTH. BUT CONFUSED TO THE YEAR. PT GOES IN AND OUT OF CONFUSION. PT REORIENTED PRN T/O THE NIGHT. PT MEDICATED FOR AGITATION PER ORDERS. IV ANTIBIOTICS PER ORDERS. PLAN OF CARE REMAINS UNCHANGED. BED IN LOWEST POSITION, CALL LIGHT WITHIN REACH.
[2024-04-19 06:06] VITALS: BP 130/59
[2024-04-19 08:49] VITALS: BP 147/68
[2024-04-19] MEDS ORDERED: PredniSONE 20 MG Tab PO SCH (09:00)
[2024-04-19 10:06] LABS: BASOPHILS ABSOLUTE AUTO 0.01 K/mm3 (0.00-0.23); BASOPHILS PERCENT AUTO 0 % (0-2); EOSINOPHILS ABSOLUTE AUTO 0.05 K/mm3 (0.00-0.68); EOSINOPHILS PERCENT AUTO 0 % (0-6); Hemoglobin 9.3 g/dL (13.5-17.5); IMMATURE GRAN PERCENT AUTO 1 % (0-1); LYMPHOCYTES ABSOLUTE AUTO 1.28 K/mm3 (0.84-5.20); LYMPHOCYTES PERCENT AUTO 9 % (21-46); MONOCYTES ABSOLUTE AUTO 1.19 K/mm3 (0.16-1.47); MONOCYTES PERCENT AUTO 8 % (4-13); Mean Corpuscular HGB 31.2 pg (26.0-34.0); Mean Corpuscular HGB Conc 33.2 g/dL (31.5-36.5); Mean Corpuscular Volume 94 fL (80-100); Mean Platelet Volume 10.3 fL (9.1-12.4); NEUTROPHILS ABSOLUTE AUTO 12.42 K/mm3 (1.96-9.15); NEUTROPHILS PERCENT AUTO 83 % (41-73); Platelet Count 437 K/mm3 (150-400); RDW Coefficient Variation 15.1 % (11.7-14.2); RDW Standard Deviation 51.1 fL (35.1-46.3); Red Blood Cell Count 2.98 M/mm3 (4.30-5.90); White Blood Cell Count 15.05 K/mm3 (4.00-11.30)
[2024-04-19 10:22] LABS: Bun/Creatinine Ratio 14.4 (12.0-20.0); Creatinine, Blood 1.25 mg/dL (0.60-1.20); Potassium, Blood 3.3 mmol/L (3.5-5.5)
[2024-04-19] MEDS ORDERED: Potassium Chloride 20 MEQ TabCR PO ONE (11:00)
[2024-04-19 15:40] VITALS: BP 149/75
[2024-04-19] MEDS ORDERED: Carvedilol 25 MG Tab PO SCH (17:00)
[2024-04-19 18:11] VITALS: BP 145/70
--- NOTE | 2024-04-19 18:30 | NUR ---
SHIFT SUMMARY PT IS A/O X2, ORIENTED TO SELF AND PLACE, ABLE TO FOLLOW COMMANDS. TOLERATING REG DIET AND FLUIDS. VSS. NO TELE EVENTS THIS SHIFT, DENIES CHEST PAIN AND PRESSURE. PT HAS NOT TRIED TO GET OUT OF BED THIS SHIFT, BED ALARM ON FOR SAFETY. OCCASIONAL COUGH, RESPS E/U AT REST, TOLERATING RA W/ O2 SATS >92%, DENIES SOB. PT UP TO BSC 1 ASST W/ FWW AND GB. CLEMENT IN PLACE DRAINING DARK YELLOW URINE. PT DENIES PAIN AND NAUSEA THIS SHIFT. CALL LIGHT IN PLACE.
[2024-04-19 20:45] VITALS: BP 124/57
[2024-04-20 04:48] VITALS: BP 154/66
--- NOTE | 2024-04-20 05:07 | NUR ---
NOC SUMMARY- PT WAS AWAKE AT SHIFT CHANGE. PT IS AOX SELF. PT BECAME MORE AGITATED AND PRN SEROQUEL WAS GIVEN. PT HAS BEEN RESTING QUIETLY AND NO LONGER TRYING TO GET OUT OF BED. NO TELE EVENTS REPORTED. CLEMENT DRAINING TO GRAVITY. THIS AM PT IS AWAKE WATCHING TV AND PLESANT. CALL LIGHT IN REACH AND BED ALARM ON.
[2024-04-20 05:28] LABS: BASOPHILS ABSOLUTE AUTO 0.01 K/mm3 (0.00-0.23); BASOPHILS PERCENT AUTO 0 % (0-2); EOSINOPHILS ABSOLUTE AUTO 0.03 K/mm3 (0.00-0.68); EOSINOPHILS PERCENT AUTO 0 % (0-6); Hemoglobin 9.1 g/dL (13.5-17.5); IMMATURE GRAN ABSOLUTE AUTO 0.09 K/mm3 (0.00-0.10); IMMATURE GRAN PERCENT AUTO 1 % (0-1); LYMPHOCYTES PERCENT AUTO 6 % (21-46); MONOCYTES ABSOLUTE AUTO 1.05 K/mm3 (0.16-1.47); MONOCYTES PERCENT AUTO 7 % (4-13); Mean Corpuscular HGB 31.3 pg (26.0-34.0); Mean Corpuscular HGB Conc 33.7 g/dL (31.5-36.5); Mean Corpuscular Volume 93 fL (80-100); Mean Platelet Volume 10.2 fL (9.1-12.4); NEUTROPHILS ABSOLUTE AUTO 12.44 K/mm3 (1.96-9.15); NEUTROPHILS PERCENT AUTO 86 % (41-73); Platelet Count 411 K/mm3 (150-400); RDW Coefficient Variation 15.1 % (11.7-14.2); RDW Standard Deviation 50.5 fL (35.1-46.3); Red Blood Cell Count 2.91 M/mm3 (4.30-5.90); White Blood Cell Count 14.52 K/mm3 (4.00-11.30)
[2024-04-20 06:02] LABS: Calcium, Blood 7.9 mg/dL (8.5-10.1); Creatinine, Blood 1.28 mg/dL (0.60-1.20); Potassium, Blood 3.8 mmol/L (3.5-5.5)
[2024-04-20 07:24] VITALS: BP 123/101
[2024-04-20 07:25] VITALS: BP 147/62
[2024-04-20] MEDS ORDERED: Sacubitril/Valsartan 97 mg-103 mg Tab PO SCH (09:00)
[2024-04-20 15:17] VITALS: BP 125/62
[2024-04-20 19:23] VITALS: BP 127/73
--- NOTE | 2024-04-20 19:58 | NUR ---
SHIFT SUMMARY S/P NSTEMI WITH STENT PLACEMENT, A/OX 3 TODAY, UP TO CHAIR TWICE THIS SHIFT FOR LUNCH AND DINNER, ABLE TO MAKE NEEDS KNOWN, DOING WELL WITH TRANSFERS. NO ACUTE EVENTS THIS SHIFT, CALL LIGHT IN REACH.
--- NOTE | 2024-04-20 21:50 | NUR ---
ATTEMPTED RN REPORT, AWAITING RETURN CALL.
--- NOTE | 2024-04-20 22:15 | NUR ---
REPORT RECEIVED FROM LUCRECIA, PRODUCTION BROACHER AND AWAITING PT T/F TO ROOM 306.
--- NOTE | 2024-04-20 22:15 | NUR ---
PT TRANSFER REPORT GIVEN TO MEDICAL FLOOR RN. PT TRANSFERRED VIA BED, ALL PERSONAL BELONGINGS & MEDICATIONS SENT WITH PATIENT. NO ACUTE CHANGES SINCE 1844.
[2024-04-20 22:33] VITALS: BP 155/65
[2024-04-21 04:37] VITALS: BP 152/69
[2024-04-21 05:39] LABS: BASOPHILS ABSOLUTE AUTO 0.02 K/mm3 (0.00-0.23); BASOPHILS PERCENT AUTO 0 % (0-2); EOSINOPHILS ABSOLUTE AUTO 0.04 K/mm3 (0.00-0.68); EOSINOPHILS PERCENT AUTO 0 % (0-6); Hematocrit 28.8 % (37.0-53.0); Hemoglobin 9.6 g/dL (13.5-17.5); IMMATURE GRAN PERCENT AUTO 1 % (0-1); LYMPHOCYTES ABSOLUTE AUTO 0.75 K/mm3 (0.84-5.20); LYMPHOCYTES PERCENT AUTO 6 % (21-46); MONOCYTES ABSOLUTE AUTO 1.02 K/mm3 (0.16-1.47); MONOCYTES PERCENT AUTO 8 % (4-13); Mean Corpuscular HGB 30.9 pg (26.0-34.0); Mean Corpuscular HGB Conc 33.3 g/dL (31.5-36.5); Mean Corpuscular Volume 93 fL (80-100); Mean Platelet Volume 10.3 fL (9.1-12.4); NEUTROPHILS ABSOLUTE AUTO 11.76 K/mm3 (1.96-9.15); NEUTROPHILS PERCENT AUTO 86 % (41-73); Platelet Count 415 K/mm3 (150-400); RDW Coefficient Variation 14.7 % (11.7-14.2); RDW Standard Deviation 49.5 fL (35.1-46.3); Red Blood Cell Count 3.11 M/mm3 (4.30-5.90); White Blood Cell Count 13.69 K/mm3 (4.00-11.30)
[2024-04-21 06:10] LABS: Bun/Creatinine Ratio 19.8 (12.0-20.0); Creatinine, Blood 1.21 mg/dL (0.60-1.20); Potassium, Blood 3.8 mmol/L (3.5-5.5)
--- NOTE | 2024-04-21 06:45 | NUR ---
T/F AND SUMMARY: PT T/F TO ROOM 306 AT 2220 VIA BED AND PT ORIENTED TO NEW ROOM AND CALL SYSTEM. HE'S A/OX4, CALLS APPROPRIATELY TO SPECIFY NEEDS AND IS PLEASANT AND COOPERATIVE W/CARE. BLADDER TRAINING IN PROGRESS AND PT REPORTS FEELIN SLIGHT BLADDER PAIN AND NEED TO VOID APPROX Q3H W/RELIEF UPON UNCLAMPING CATH. HE WAS UP W/1PA AND FWW TO TOILET FOR BM AND REPORTED FOOT DROP AT BASELINE TO L.FOOT. PT ON TELE IN NSR AT 60'S-70'S BPM BUT DID HAVE X2 NEW EPISODES V.TACH OF 6 AND 8 SECONDS. PT WAS ASYMPTOMATIC OF CARDIAC DISTRESS AND WAS MADE AWARE W/NO NEW ORDERS. PRN TYLENOL AND IV ABX RECEIVED THEN SL'D. NO ACUTE CHANGES, VSS/AFEBRILE. WCTM AND REPORT TO DAY RN.
[2024-04-21 07:43] VITALS: BP 137/78
[2024-04-21 14:52] VITALS: BP 130/61
--- NOTE | 2024-04-21 16:00 | NUR ---
MET WITH PATIENT AND HIS SISTER. THERAPUTIC CONVERSATION ABOUT HIS EXPERIENCE THIS HOSPITILIZATION. ENCOURAGED HAVING A DISCUSSION ABOUT [facility] PLANNING AND FILLING OUT A POLST AND AD. PATIENT IS PENDING DISCHARGE TOMORROW.
--- NOTE | 2024-04-21 17:18 | NUR ---
SHIFT SUMMARY PT A&OX4, COOPERATIVE, ABLE TO MAKE NEEDS KNOWN. PT WORKING WITH PT TODAY AND WENT WELL. UP IN RECLINER OR ABOUT 2 HOURS TODAY. BLADDER TRAINING ALL DAY, CLAMPED FOR 4 HOURS AT A TIME, PT REPORTS NO URGE TO URINATE. WHEN UNCLAMPED, THE MOST OUTPUT HAS BEEN 225. PT TOLERATING PO AND IV MEDS. CARE MANAGEMENT HAS BEEN ACTIVE ON PT CASE. BED IN LOWEST POSITION, CALL LIGHT WITHIN REACH.
[2024-04-21 19:26] VITALS: BP 96/67
[2024-04-22 04:18] VITALS: BP 137/70
[2024-04-22 05:20] LABS: BASOPHILS ABSOLUTE AUTO 0.01 K/mm3 (0.00-0.23); BASOPHILS PERCENT AUTO 0 % (0-2); EOSINOPHILS ABSOLUTE AUTO 0.05 K/mm3 (0.00-0.68); EOSINOPHILS PERCENT AUTO 0 % (0-6); Hematocrit 29.4 % (37.0-53.0); Hemoglobin 9.8 g/dL (13.5-17.5); IMMATURE GRAN ABSOLUTE AUTO 0.08 K/mm3 (0.00-0.10); IMMATURE GRAN PERCENT AUTO 1 % (0-1); LYMPHOCYTES ABSOLUTE AUTO 1.14 K/mm3 (0.84-5.20); LYMPHOCYTES PERCENT AUTO 9 % (21-46); MONOCYTES ABSOLUTE AUTO 1.04 K/mm3 (0.16-1.47); MONOCYTES PERCENT AUTO 8 % (4-13); Mean Corpuscular HGB 30.8 pg (26.0-34.0); Mean Corpuscular HGB Conc 33.3 g/dL (31.5-36.5); Mean Corpuscular Volume 93 fL (80-100); Mean Platelet Volume 10.1 fL (9.1-12.4); NEUTROPHILS ABSOLUTE AUTO 10.04 K/mm3 (1.96-9.15); NEUTROPHILS PERCENT AUTO 81 % (41-73); Platelet Count 379 K/mm3 (150-400); RDW Coefficient Variation 14.5 % (11.7-14.2); RDW Standard Deviation 48.9 fL (35.1-46.3); Red Blood Cell Count 3.18 M/mm3 (4.30-5.90); White Blood Cell Count 12.36 K/mm3 (4.00-11.30)
--- NOTE | 2024-04-22 05:52 | NUR ---
SUMMARY: PT A/OX4, CALLS APPROPRIATELY TO SPECIFY NEEDS AND IS PLEASANT AND COOPERATIVE W/CARE. HE'S UP W/1PA AND FWW TO TOILET. PT IS CONTINENT W/URGE INCONTINENCE AND HAD ATTENDS CHANGED PRN FOR X2 LARGE SOFT FORMED STOOLS. CLEMENT IS PATENT AND DRAINING W/BLADDER TRAINING IN PROGRESS. PT REPORTS BLADDER DISCOMFORT APPROX Q3H AND FEELS RELIEF W/UNCLAMPING OF CATH. NO ACUTE CHANGES, VSS/AFEBRILE. WCTM AND REPORT TO DAY RN.
[2024-04-22 05:54] LABS: Creatinine, Blood 1.26 mg/dL (0.60-1.20); Potassium, Blood 3.6 mmol/L (3.5-5.5)
[2024-04-22] MEDS ORDERED: Pantoprazole Sodium 40 MG Tab PO SCH (06:00)
[2024-04-22 08:19] VITALS: BP 131/75
--- NOTE | 2024-04-22 09:56 | NUR ---
REPORT FROM TRESSA RN, PT IN WORKING WITH PATIENT, CALL LIGHT WITH IN REACH
[2024-04-22] MEDS ORDERED: PANT40 PO (12:48)
[2024-04-22] MEDS ORDERED: CARV25 PO (12:48)
[2024-04-22] MEDS ORDERED: JARDIANCE10 MG PO (12:48)
[2024-04-22] MEDS ORDERED: SPIR25 PO (12:49)
[2024-04-22] MEDS ORDERED: ENTRESTO 97 MG1 EACH PO (12:49)
[2024-04-22] MEDS ORDERED: QUET25 PO (12:49)
[2024-04-22] MEDS ORDERED: BRILINTA90 M1 PO (12:49)
--- NOTE | 2024-04-22 14:29 | NUR ---
PT DISCHARGED HOME WITH HOME HEALTH. CLEMENT CATHETER IN PLACE. TRANSPORTED BY AMBULANCE
== END 2024-04-22 14:30 | disposition home health service (06) | DRG 853 ==
LOC: ER 18:17 → ERHOLD 18:18 → MEDS 04-05 15:09 → PCU 04-06 19:41 → ICUE 04-06 19:41 → MEDS 04-06 19:41 → ICUE 04-09 01:44 → PCU 04-13 14:27 → SURS 04-17 18:49 → MEDS 04-20 22:25
PROVIDERS: Family Medicine; Internal Medicine; Internal Medicine Cardiovascular Disease; Internal Medicine Critical Care Medicine; Student in an Organized Health Care Education/Training Program; ADMIT Student in an Organized Health Care Education/Training Program
PROC: 3E03329 Introduction of Other Anti-infective into Peripheral Vein, Percutaneous Approach (ICD-10-PCS; principal; 2024-04-05)
PROC: 5A1935Z Respiratory Ventilation, Less than 24 Consecutive Hours (ICD-10-PCS; 2024-04-09)
PROC: 0BH17EZ Insertion of Endotracheal Airway into Trachea, Via Natural or Artificial Opening (ICD-10-PCS; 2024-04-09)
PROC: 3E033XZ Introduction of Vasopressor into Peripheral Vein, Percutaneous Approach (ICD-10-PCS; 2024-04-10)
PROC: 4A023N7 Measurement of Cardiac Sampling and Pressure, Left Heart, Percutaneous Approach (ICD-10-PCS; 2024-04-10)
PROC: B2111ZZ Fluoroscopy of Multiple Coronary Arteries using Low Osmolar Contrast (ICD-10-PCS; 2024-04-10)
PROC: 027035Z Dilation of Coronary Artery, One Artery with Two Drug-eluting Intraluminal Devices, Percutaneous Approach (ICD-10-PCS; 2024-04-11)
PROC: B240ZZ3 Ultrasonography of Single Coronary Artery, Intravascular (ICD-10-PCS; 2024-04-11)
DX: A41.9 Sepsis, unspecified organism (principal); G93.41 Metabolic encephalopathy; I21.4 Non-ST elevation (NSTEMI) myocardial infarction; J18.9 Pneumonia, unspecified organism; J96.01 Acute respiratory failure with hypoxia; I50.21 Acute systolic (congestive) heart failure; J96.02 Acute respiratory failure with hypercapnia; N39.0 Urinary tract infection, site not specified; I42.9 Cardiomyopathy, unspecified; M62.82 Rhabdomyolysis; J44.0 Chronic obstructive pulmonary disease with (acute) lower respiratory infection; E87.1 Hypo-osmolality and hyponatremia; N17.9 Acute kidney failure, unspecified; I13.0 Hypertensive heart and chronic kidney disease with heart failure and stage 1 through stage 4 chronic kidney disease, or unspecified chronic kidney disease; K62.5 Hemorrhage of anus and rectum; Z28.21 Immunization not carried out because of patient refusal; N18.30 Chronic kidney disease, stage 3 unspecified; E03.9 Hypothyroidism, unspecified; I73.9 Peripheral vascular disease, unspecified; F10.20 Alcohol dependence, uncomplicated; I72.3 Aneurysm of iliac artery; D50.9 Iron deficiency anemia, unspecified; N40.0 Benign prostatic hyperplasia without lower urinary tract symptoms; E83.39 Other disorders of phosphorus metabolism; E87.6 Hypokalemia; R31.9 Hematuria, unspecified; K21.9 Gastro-esophageal reflux disease without esophagitis; F17.210 Nicotine dependence, cigarettes, uncomplicated; I36.1 Nonrheumatic tricuspid (valve) insufficiency; I25.2 Old myocardial infarction; R41.0 Disorientation, unspecified; Z79.82 Long term (current) use of aspirin; Z79.890 Hormone replacement therapy; Z79.899 Other long term (current) drug therapy; Z98.890 Other specified postprocedural states
CPT/HCPCS: 0241U; 31500; 36415; 36600; 51700; 51701; 51702; 51703; 70450; 71045; 74230; 76937; 80048; 80053; 80320; 81001; 82550; 82728; 82803; 82947; 83540; 83550; 83605; 83735; 83880; 83930; 83935; 84100; 84145; 84295; 84300; 84443; 84484; 85014; 85018; 85025; 85027; 85347; 85379; 85520; 85610; 85730; 87040; 87070; 87077; 87086; 87186; 87205; 92526; 92610; 92611; 92978; 93005; 93010; 93454; 93458; 93571; 94002; 94003; 94640; 94644; 94660; 94664; 94760; 94762; 96365; 96366; 96367; 96372; 96376; 97110; 97116; 97161; 97530; 99152; 99153; 99285-25; A9270; C1725; C1753; C1769; C1874; C1887; C1894; C8929; C9600; G0378; J0456; J0696; J1644; J1650; J1940; J2250; J2470; J2543; J2704; J2919; J3010; J3411; J3475; J3480; J7030; J7040; J7050; J7060; J7512; Q9957; Q9967

== ENCOUNTER 2024-05-15 11:08 | Emergency (ER) | payer OTHER ==
[~2024-05-15] VITALS: Ht 170.2 cm; Wt 72.6 kg
[~2024-05-15 11:08] MED LIST changes: +ATOR40TA PO; +BRILINTA90 M1 PO; +CARV25 PO; +CILO100 PO; +ENTRESTO 97 MG1 EACH PO; +JARDIANCE10 MG PO; +LEVSOD100 PO; -NS 1,000 ML IV SCH; +PANT40 PO; +QUET25 PO; +SPIR25 PO
[2024-05-15] MEDS ORDERED: Oxymetazoline 0.05% Nasal Relief Spray 15mL BTL ONE (11:25)
[2024-05-15 14:15] VITALS: BP 131/64
== END 2024-05-15 14:17 | disposition home or self-care (01) ==
LOC: ER 11:08
DX: R04.0 Epistaxis (principal); I25.2 Old myocardial infarction; E03.9 Hypothyroidism, unspecified; I11.0 Hypertensive heart disease with heart failure; I50.9 Heart failure, unspecified; F17.210 Nicotine dependence, cigarettes, uncomplicated; Z79.82 Long term (current) use of aspirin; Z79.899 Other long term (current) drug therapy
CPT/HCPCS: 30901; 99284-25; A9270

== ENCOUNTER → 2024-05-29 | Outpatient (CLI) | payer OTHER ==
[2024-05-29 18:22] LABS: Source, Urine Urostomy Bag
[2024-05-29 18:27] LABS: Appearance, Urine Cloudy (Clear); Bilirubin, Urine Neg (Neg); Blood, Urine 5+ (Neg); Color, Urine Yellow (P-Yellow); Glucose Qualitative, Urine 4+ (Neg); Ketones, Urine Neg (Neg); Leukocyte Esterase, Urine 3+ (Neg); Nitrite, Urine Neg (Neg); Protein, Urine 2+ (Neg); Specific Gravity, Urine 1.005 (1.003-1.022); Urobilinogen, Urine NORM (Normal)
[2024-05-29 18:34] LABS: Bacteria Many /hpf; Squamous Epithelial Cells Not Seen /hpf (Few); Transitional Epithelial Cells Few /hpf (0-Rare); White Blood Cells, Urine TNTC /hpf (0-5)
== END | disposition home or self-care (01) ==
LOC: LAB SHORT 18:18 → LAB 18:18
PROVIDERS: Family Medicine
DX: N39.0 Urinary tract infection, site not specified (principal)
CPT/HCPCS: 81001; 87077; 87086; 87186

== ENCOUNTER 2024-08-15 15:51 | Emergency (ER) | payer OTHER ==
[~2024-08-15] VITALS: Ht 170.2 cm; Wt 72.6 kg
[2024-08-15] MEDS ORDERED: NS 1,000 ML IV SCH (16:30)
[2024-08-15 16:48] LABS: BASOPHILS ABSOLUTE AUTO 0.05 K/mm3 (0.00-0.23); BASOPHILS PERCENT AUTO 1 % (0-2); EOSINOPHILS ABSOLUTE AUTO 0.44 K/mm3 (0.00-0.68); EOSINOPHILS PERCENT AUTO 6 % (0-6); Hematocrit 31.4 % (37.0-53.0); Hemoglobin 10.1 g/dL (13.5-17.5); IMMATURE GRAN ABSOLUTE AUTO 0.01 K/mm3 (0.00-0.10); IMMATURE GRAN PERCENT AUTO 0 % (0-1); LYMPHOCYTES ABSOLUTE AUTO 1.03 K/mm3 (0.84-5.20); LYMPHOCYTES PERCENT AUTO 13 % (21-46); MONOCYTES ABSOLUTE AUTO 0.69 K/mm3 (0.16-1.47); MONOCYTES PERCENT AUTO 9 % (4-13); Mean Corpuscular HGB 27.7 pg (26.0-34.0); Mean Corpuscular HGB Conc 32.2 g/dL (31.5-36.5); Mean Corpuscular Volume 86 fL (80-100); Mean Platelet Volume 10.2 fL (9.1-12.4); NEUTROPHILS ABSOLUTE AUTO 5.49 K/mm3 (1.96-9.15); NEUTROPHILS PERCENT AUTO 71 % (41-73); Platelet Count 228 K/mm3 (150-400); RDW Coefficient Variation 13.5 % (11.7-14.2); RDW Standard Deviation 42.9 fL (35.1-46.3); Red Blood Cell Count 3.64 M/mm3 (4.30-5.90); White Blood Cell Count 7.71 K/mm3 (4.00-11.30)
[2024-08-15 16:49] VITALS: BP 119/56
[2024-08-15] MEDS ORDERED: Ipratropium/Albuterol SulF 2.5-0.5MG/3 ML Amp INH ONE ×2 (17:00→18:50)
[2024-08-15 17:06] LABS: Albumin, Blood 3.1 g/dL (3.4-5.0); Albumin/Globulin Ratio 0.8 (0.8-1.8); Bilirubin, Total 0.5 mg/dL (0.1-1.0); Bun/Creatinine Ratio 25.2 (12.0-20.0); Calcium, Blood 8.6 mg/dL (8.5-10.1); Creatinine, Blood 1.31 mg/dL (0.60-1.20); Globulin, Blood 3.9 g/dL (2.2-4.0); Potassium, Blood 4.6 mmol/L (3.5-5.5)
[2024-08-15 17:33] LABS: Influenza A, PCR NEGATIVE (NEGATIVE); Influenza B, PCR NEGATIVE (NEGATIVE); Resp Syncytial Virus, PCR NEGATIVE (NEGATIVE)
[2024-08-15 17:34] LABS: SARS-Cov-2 (COVID-19) PCR, MMC POSITIVE (NEGATIVE)
[2024-08-15] MEDS ORDERED: MethylPREDNISolone Sod Succ 125 MG Vial IV ONE (18:50)
[2024-08-15] MEDS ORDERED: PRED20 PO (23:57)
== END 2024-08-15 22:32 | disposition home or self-care (01) ==
LOC: ER 15:51
PROVIDERS: Student in an Organized Health Care Education/Training Program
DX: U07.1 COVID-19 (principal); Z79.2 Long term (current) use of antibiotics; Z79.82 Long term (current) use of aspirin; Z79.899 Other long term (current) drug therapy; I11.0 Hypertensive heart disease with heart failure; I50.9 Heart failure, unspecified; F17.210 Nicotine dependence, cigarettes, uncomplicated
CPT/HCPCS: 0241U; 71046; 80053; 85025; 93005; 93010; 94640; 94664; 96361; 96374; 99284-25; J2919; J7030

== ENCOUNTER → 2025-03-03 | Outpatient (CLI) | payer OTHER ==
[~2025-03-03] MED LIST changes: +PRED20 PO
[2025-03-04 00:25] LABS: Alanine Aminotransfer (ALT/SGP 20.0 U/L (12-78); Albumin, Blood 3.4 g/dL (3.4-5.0); Albumin/Globulin Ratio 1.1 (0.8-1.8); Anion Gap 9.0 mmol/L (3-11); Aspartate Aminotrans (AST/SGOT 15.0 U/L (12-37); Bilirubin, Total 0.5 mg/dL (0.1-1.0); Blood Urea Nitrogen 33.0 mg/dL (8-24); CO2, Blood 26.0 mmol/L (21-32); Calcium, Blood 8.0 mg/dL (8.5-10.1); Chloride, Blood 109.0 mmol/L (98-108); Creatinine, Blood 1.45 mg/dL (0.60-1.20); Globulin, Blood 3.1 g/dL (2.2-4.0); Glucose, Blood 114.0 mg/dL (70-99); Phosphorus, Blood 2.8 mg/dL (2.5-4.9); Potassium, Blood 4.8 mmol/L (3.5-5.5); Sodium, Blood 139.0 mmol/L (136-145); Total Protein, Blood 6.5 g/dL (6.4-8.2)
== END ==
LOC: LAB SHORT 10:03 → LAB 10:03
PROVIDERS: Internal Medicine Hematology & Oncology
DX: E61.1 Iron deficiency (principal); I10 Essential (primary) hypertension
CPT/HCPCS: 80053; 84100

== ENCOUNTER → 2025-05-11 | Outpatient (CLI) | payer OTHER ==
[2025-05-12 12:35] LABS: Ferritin, Serum 111.0 ng/mL (26-388); Total Iron Binding Capacity 217.0 ug/dL (250-450)
== END | disposition home or self-care (01) ==
LOC: LAB 10:30 → LAB SHORT 10:30
PROVIDERS: Internal Medicine Hematology & Oncology
DX: E61.1 Iron deficiency (principal)
CPT/HCPCS: 82728; 83540; 83550